=== PATIENT | male | born 1955 | race Caucasian/White ===

== ENCOUNTER → 2018-04-08 09:15 | Outpatient (CLI) | payer SELFPAY ==
[2018-04-08 11:08] LABS: Anion Gap 9 (5-15); BUN 12 mg/dL (7-18); BUN/Creat Ratio 14.4 RATIO (10-20); Chloride 108 mmol/L (98-107); Cholesterol 154 mg/dL (200); Creatinine, Serum 0.83 mg/dL (0.70-1.30); EST Glomerular Filtration Rate 99 mL/min (>60); Est Glom Filt Rate - Afr Amer 120 mL/min (>60); Glucose 100 mg/dL (74-106); High Density Lipoprotein 34 mg/dL; PSA,Total - Annual Screen 0.71 ng/mL (0.00-4.00); Potassium 3.7 mmol/L (3.5-5.1); Sodium Level 145 mmol/L (136-145); Triglycerides 158 mg/dL; Very Low Density Lipoprotein 32 mg/dL (5-40)
--- OUTSIDE RECORDS SUMMARY | 2018-07-10 21:33 | XMS RPT_ITS ---
:1955 Author Organization OH[facility] Care Team Providers Name Role Phone Chris Cochran Attending Unavailable Chris Cochran Referring Unavailable Chris Cochran Primary Care Unavailable PROBLEMS PROBLEMS DATE TYPE CONDITION / CODE ATTENDING STATUS SOURCE 04/17/2018 Unknown I10 - Essential Chris Cochran Active [place] (primary) Formerly [facility] hypertension / Hospital I10(ICD-10) Repository PROCEDURES PROCEDURES No Procedure Records FoundRESULTS RESULTS BASIC METABOLIC Collected: 04/08/2018 Status: F Source: [place] PROFILE (BMP) 9:26 AM [facility] REPOSITORY TYPE CODE TESTS RESULT OUT OF RANGE REFERENCE UNITS LAB L501.0100 74-106 mg/dL Normal GLU 100 Result Comment: Fasting Glucose result from 100 to 125 mg/dL suggests IMPAIRED HOMEOSTASIS per A.D.A. criteria. Please note revised GLUCOSE reference range effective 2017. LAB L501.1000 7-18 mg/dL Normal BUN 12 LAB L501.1100 0.70-1.30 mg/dL Normal CREAT,SERUM 0.83 Result Comment: The validity of the calculated GFR AND GFRAA in patients over 70 years has not been determined. Clinical correlation is essential. LAB L501.1110 >60 mL/min Normal EST GFR 99 Result Comment: Non- GFR Calc LAB L501.1115 >60 mL/min Normal EST GFR - AA 120 Result Comment: GFR Calc LAB L501.1300 10-20 RATIO Normal BUN/CRE 14.4 LAB L501.2200 8.5-10.1 mg/dL CA Normal 9.0 LAB L501.5300 136-145 mmol/L NA Normal 145 LAB L501.5600 3.5-5.1 mmol/L K Normal 3.7 LAB L501.5900 98-107 mmol/L High CL 108 LAB L501.6100 21.0-32.0 mmol/L Normal CO2 28.0 LAB L501.6200 5-15 Normal GAP 9 Performed By: #### L500.2500, L500.4100, L501.9910 #### [facility] [address] [place], [place], [address] LIPID PROFILE Collected: 04/08/2018 Status: F Source: [place] 9:26 AM [facility] TYPE CODE TESTS RESULT OUT OF RANGE REFERENCE UNITS LAB L501.4900 200 mg/dL Normal CHOL 154 Result Comment: <200 mg/dL Desirable 200-240 mg/dL Borderline >240 mg/dL High Risk LAB L501.5000 mg/dL Normal TRIG 158 Result Comment: The drugs N-Acetylcysteine and Metamizole may falsely depress this assay. Serum Triglycerides Reference Interval Normal <150 mg/dL Borderline high 150 - 199 mg/dL High 200 - 499 mg/dL Very High > or = 500 mg/dL LAB L501.6400 mg/dL Low HDL 34 Result Comment: The drugs N-Acetylcysteine and Metamizole may falsely depress this assay. Reference Range HDL <40 mg/dL Low HDL Cholesterol HDL >or= 60 mg/dL High HDL Cholesterol LAB L501.6500 0-130 mg/dL Normal LDL 88 LAB L501.6600 5-40 mg/dL Normal VLDL 32 Performed By: #### L500.2500, L500.4100, L501.9910 #### [facility] [address] [place], [place], [id number] PSA,TOTAL - ANNUAL Collected: 04/08/2018 Status: F Source: [place] SCREEN 9:26 AM [facility] TYPE CODE TESTS RESULT OUT OF RANGE REFERENCE UNITS LAB L501.9910 0.00-4.00 ng/mL Normal PSA,TOT 0.71 SCREEN Result Comment: This test was performed using the TPSA assay method for the Lancope chemistry system. Values obtained with different assay methods cannot be used interchangably. When changing PSA assays in the course of monitoring a patient, additional sequential testing should be carried out to confirm baseline values. Performed By: #### L500.2500, L500.4100, L501.9910 #### [facility] [address] [place], [address] ALLERGIES ALLERGIES DATE TYPE / CODE NAME / CODE REACTION SEVERITY SOURCE 04/17/2018 Drug atorvastatin Pain in joints Unknown [facility] Allergy/4160 /[id number]( Hospital [address](SNOMED RXNORM) Repository CT) ENCOUNTERS ENCOUNTERS ADMIT/DISCHARGE ACCOUNT ADMITTING ENCOUNTER LOCATION SOURCE NUMBER CLASS 04/08/2018 [id number] Ambulatory [address] ing:MTLAB Repository PAYERS PAYERS ENCOUNTER GUARANTOR PAYER SUBSCRIBER SOURCE 04/08/2018 CORTNEY [facility] NOT GIVENUNK [place] [id number] FORCE Insurance:SELF PAY [facility] [address]Goo: ([phone]) Number: Effective Repository [phone] () Date:2018-04-08
== END ==
PROVIDERS: Family Provider Family Medicine; PCP Family Medicine; Referring Provider Family Medicine; Visit Provider Family Medicine
DX: I10 Essential (primary) hypertension (principal); E78.00 Pure hypercholesterolemia, unspecified; Z12.5 Encounter for screening for malignant neoplasm of prostate
CPT/HCPCS: 36415; 80048; 80061; 84153; G0103

== ENCOUNTER → 2019-06-23 17:03 | Outpatient (CLI) | payer SELFPAY ==
[2016-07-18 17:00] VITALS: BMI 24.3
[2019-06-23 18:39] LABS: ALB/GLOB Ratio 1.3 RATIO (0.9-2.4); AST(SGOT) 15 U/L (15-37); Alanine Aminotransfer ALT/SGPT 24 U/L (16-61); Albumin, Serum 4.3 g/dL (3.2-5.0); Alkaline Phosphatase 120 U/L (45-117); Anion Gap 9 (5-15); BUN 17 mg/dL (7-18); BUN/Creat Ratio 18.6 RATIO (10-20); CPK Total, Creatine Kinase 110 U/L (39-308); Calcium,Total 9.1 mg/dL (8.5-10.1); Chloride 107 mmol/L (98-107); Creatinine, Serum 0.91 mg/dL (0.70-1.30); EST Glomerular Filtration Rate 89 mL/min (>60); Est Glom Filt Rate - Afr Amer 108 mL/min (>60); Ferritin 125 ng/mL (26-388); Globulin 3.2 g/dL (2.2-4.2); Glucose 110 mg/dL (74-106); Magnesium 2.3 mg/dL (1.6-2.6); Potassium 3.2 mmol/L (3.5-5.1); Protein, Total 7.5 g/dL (6.4-8.2); Sodium Level 141 mmol/L (136-145)
== END ==
PROVIDERS: PCP Family Medicine; Referring Provider Family Medicine; Visit Provider Family Medicine
DX: R25.2 Cramp and spasm (principal)
CPT/HCPCS: 36415; 80053; 82550; 82728; 83735

== ENCOUNTER → 2019-07-21 09:20 | Outpatient (CLI) | payer SELFPAY ==
[2016-07-18 17:00] VITALS: BMI 24.3
[2019-07-21 12:19] LABS: ALB/GLOB Ratio 1.4 RATIO (0.9-2.4); AST(SGOT) 18 U/L (15-37); Alanine Aminotransfer ALT/SGPT 26 U/L (16-61); Albumin, Serum 4.3 g/dL (3.2-5.0); Alkaline Phosphatase 117 U/L (45-117); Anion Gap 9 (5-15); BUN 14 mg/dL (7-18); BUN/Creat Ratio 14.3 RATIO (10-20); Calcium,Total 9.3 mg/dL (8.5-10.1); Chloride 104 mmol/L (98-107); Creatinine, Serum 0.98 mg/dL (0.70-1.30); EST Glomerular Filtration Rate 82 mL/min (>60); Est Glom Filt Rate - Afr Amer 99 mL/min (>60); Globulin 3.1 g/dL (2.2-4.2); Glucose 112 mg/dL (74-106); Potassium 3.5 mmol/L (3.5-5.1); Protein, Total 7.4 g/dL (6.4-8.2); Sodium Level 140 mmol/L (136-145)
== END ==
PROVIDERS: PCP Family Medicine; Referring Provider Family Medicine; Visit Provider Family Medicine
DX: E87.6 Hypokalemia (principal)
CPT/HCPCS: 36415; 80053

== ENCOUNTER → 2019-10-20 09:04 | Outpatient (CLI) | payer SELFPAY ==
[2016-07-18 17:00] VITALS: BMI 24.3
[2019-10-20 10:17] LABS: ALB/GLOB Ratio 1.2 RATIO (0.9-2.4); AST(SGOT) 12 U/L (15-37); Alanine Aminotransfer ALT/SGPT 16 U/L (16-61); Albumin, Serum 3.8 g/dL (3.2-5.0); Alkaline Phosphatase 96 U/L (45-117); Anion Gap 4 (5-15); BUN 13 mg/dL (7-18); BUN/Creat Ratio 14.4 RATIO (10-20); Calcium,Total 9.5 mg/dL (8.5-10.1); Chloride 109 mmol/L (98-107); EST Glomerular Filtration Rate 90 mL/min (>60); Est Glom Filt Rate - Afr Amer 109 mL/min (>60); Globulin 3.1 g/dL (2.2-4.2); Glucose 114 mg/dL (74-106); Potassium 3.5 mmol/L (3.5-5.1); Protein, Total 6.9 g/dL (6.4-8.2); Sodium Level 141 mmol/L (136-145)
== END ==
PROVIDERS: PCP Family Medicine; Referring Provider Family Medicine; Visit Provider Family Medicine
DX: I10 Essential (primary) hypertension (principal)
CPT/HCPCS: 36415; 80053

== ENCOUNTER → 2020-05-27 09:10 | Outpatient (CLI) | payer SELFPAY ==
[2016-07-18 17:00] VITALS: BMI 24.3
[2020-05-27 11:02] LABS: ALB/GLOB Ratio 1.3 RATIO (0.9-2.4); AST(SGOT) 12 U/L (15-37); Alanine Aminotransfer ALT/SGPT 18 U/L (16-61); Albumin, Serum 3.8 g/dL (3.2-5.0); Alkaline Phosphatase 98 U/L (45-117); Anion Gap 4 (5-15); BUN 15 mg/dL (7-18); BUN/Creat Ratio 16.3 RATIO (10-20); Chloride 109 mmol/L (98-107); Cholesterol 150 mg/dL (200); Creatinine, Serum 0.92 mg/dL (0.70-1.30); EST Glomerular Filtration Rate 88 mL/min (>60); Est Glom Filt Rate - Afr Amer 106 mL/min (>60); Glucose 98 mg/dL (74-106); High Density Lipoprotein 33 mg/dL; PSA,Total - Annual Screen 0.76 ng/mL (0.00-4.00); Potassium 3.6 mmol/L (3.5-5.1); Protein, Total 6.8 g/dL (6.4-8.2); Sodium Level 141 mmol/L (136-145); Triglycerides 204 mg/dL; Very Low Density Lipoprotein 41 mg/dL (5-40)
== END ==
PROVIDERS: PCP Family Medicine; Referring Provider Family Medicine; Visit Provider Family Medicine
DX: I10 Essential (primary) hypertension (principal); Z12.5 Encounter for screening for malignant neoplasm of prostate
CPT/HCPCS: 36415; 80053; 80061; 84153; G0103

== ENCOUNTER 2020-07-09 15:48 | Outpatient (RCR) | payer MEDICARE, SELFPAY ==
[2016-07-18 17:00] VITALS: BMI 24.3
[2020-07-09] MEDS: COVID-19 VACC, MRNA(PFIZER)/PF 30 MCG/0.3 ML SYRINGE IM (13:48)
[2020-07-30] MEDS: COVID-19 VACC, MRNA(PFIZER)/PF 30 MCG/0.3 ML SYRINGE IM (13:32)
== END 2020-07-09 23:59 ==
LOC: IMMUN 15:48
PROVIDERS: PCP Family Medicine; Referring Provider Family Medicine; Visit Provider Family Medicine
DX: Z23 Encounter for immunization (principal)
CPT/HCPCS: 0001A; 0002A; 91300

== ENCOUNTER 2021-07-26 09:30 | Outpatient (CLI) | payer MEDICARE, SELFPAY ==
[2021-07-26 10:55] LABS: ALB/GLOB Ratio 1.5 RATIO (0.9-2.4); AST(SGOT) 16 U/L (15-37); Alanine Aminotransfer ALT/SGPT 24 U/L (16-61); Albumin, Serum 3.8 g/dL (3.2-5.0); Alkaline Phosphatase 95 U/L (45-117); Anion Gap 6 (5-15); BUN 14 mg/dL (7-18); BUN/Creat Ratio 15.3 RATIO (10-20); Calcium,Total 8.8 mg/dL (8.5-10.1); Chloride 105 mmol/L (98-107); Cholesterol 168 mg/dL (200); Creatinine, Serum 0.91 mg/dL (0.70-1.30); EST Glomerular Filtration Rate 88 mL/min (>60); Est Glom Filt Rate - Afr Amer 107 mL/min (>60); Globulin 2.6 g/dL (2.2-4.2); Glucose 103 mg/dL (74-106); High Density Lipoprotein 33 mg/dL; Potassium 3.7 mmol/L (3.5-5.1); Protein, Total 6.4 g/dL (6.4-8.2); Sodium Level 140 mmol/L (136-145); Triglycerides 302 mg/dL; Very Low Density Lipoprotein 60 mg/dL (5-40)
== END 2021-07-26 23:59 | disposition home or self-care (01) ==
LOC: MFPLAB 09:32
PROVIDERS: PCP Nurse Practitioner Family; Referring Provider Nurse Practitioner Family; Visit Provider Nurse Practitioner Family
DX: E78.00 Pure hypercholesterolemia, unspecified (principal); I10 Essential (primary) hypertension
CPT/HCPCS: 36415; 80053; 80061

== ENCOUNTER → 2022-01-16 | Outpatient (CLI) | payer MEDICARE, SELFPAY ==
[2022-01-16 10:29] LABS: ALB/GLOB Ratio 1.2 RATIO (0.9-2.4); AST(SGOT) 12 U/L (15-37); Alanine Aminotransfer ALT/SGPT 17 U/L (16-61); Albumin, Serum 3.5 g/dL (3.2-5.0); Alkaline Phosphatase 91 U/L (45-117); Anion Gap 7 (5-15); BUN 15 mg/dL (7-18); BUN/Creat Ratio 17.6 RATIO (10-20); Calcium,Total 9.1 mg/dL (8.5-10.1); Chloride 108 mmol/L (98-107); Cholesterol 118 mg/dL (200); Creatinine, Serum 0.85 mg/dL (0.70-1.30); EST Glomerular Filtration Rate 96 mL/min (>60); Est Glom Filt Rate - Afr Amer 116 mL/min (>60); Glucose 99 mg/dL (74-106); High Density Lipoprotein 35 mg/dL; Potassium 3.5 mmol/L (3.5-5.1); Protein, Total 6.5 g/dL (6.4-8.2); Sodium Level 143 mmol/L (136-145); Triglycerides 163 mg/dL; Very Low Density Lipoprotein 33 mg/dL (5-40)
== END | disposition home or self-care (01) ==
LOC: MFPLAB 09:33
PROVIDERS: PCP Family Medicine; Referring Provider Family Medicine; Visit Provider Family Medicine
DX: E78.00 Pure hypercholesterolemia, unspecified (principal)
CPT/HCPCS: 36415; 80053; 80061

== ENCOUNTER → 2022-07-03 | Outpatient (CLI) | payer MEDICARE, SELFPAY ==
[2022-07-03 12:36] LABS: Hemoglobin A1c 5.6 % (3.8-5.6)
[2022-07-03 12:42] LABS: Anion Gap 9 (5-15); BUN 17 mg/dL (7-18); BUN/Creat Ratio 17.5 RATIO (10-20); Calcium,Total 9.6 mg/dL (8.5-10.1); Chloride 107 mmol/L (98-107); Creatinine, Serum 0.97 mg/dL (0.70-1.30); EST Glomerular Filtration Rate 82 mL/min (>60); Est Glom Filt Rate - Afr Amer 100 mL/min (>60); Glucose 122 mg/dL (74-106); Potassium 3.4 mmol/L (3.5-5.1); Sodium Level 140 mmol/L (136-145)
== END | disposition home or self-care (01) ==
LOC: MFPLAB 09:50
PROVIDERS: PCP Family Medicine; Visit Provider Family Medicine
DX: R73.9 Hyperglycemia, unspecified (principal)
CPT/HCPCS: 36415; 80048; 83036

== ENCOUNTER 2023-03-06 12:23 | Observation (INO) | payer MEDICARE, SELFPAY ==
--- NOTE | 2023-03-06 | MRI_ITS ---
STUDY: MRI BRAIN WITHOUT CONTRAST REASON FOR EXAM: Male, 67 years old. CVA, memory loss x3-4 hrs, prior TIA hx TECHNIQUE: Standardized multiplanar fat and water weighted pulse sequences were obtained. COMPARISON: CT 03/06/2023 FINDINGS: There is mild cerebral atrophy with widening of the extra-axial spaces and ventricular dilatation. Normal white matter tracts of the supratentorial brain. There is no evidence for recent intracranial ischemia or other cause of cytotoxic edema on diffusion weighted imaging (DWI). Normal T2* images of the brain without demonstrated susceptibility artifact. There is no demonstrated hemosiderin stain. Normal bilateral basal ganglia. Normal thalami. There is no extra-axial fluid accumulation. Normal flow voids within the major intracranial circulation suggesting patency by spin echo criteria. Normal sella turcica, pituitary gland, infundibular stalk, optic chiasm and hypothalamus. Normal tectal plate and pineal gland. Normal midbrain, glenna and medulla. Normal cerebellum. Normal basal cisterns. Normal bilateral temporal bones. Normal bilateral internal auditory canals. No demonstrated orbital abnormality, within the constraints of a routine brain study. Normal visualized paranasal sinuses. Normal calvarium and skull base. Normal visualized soft tissue structures. Normal visualized upper cervical spine. MRI/Brain without Contrast IMPRESSION: Normal unenhanced MRI of the brain. Electronically Signed: Georges Bullock MD at 20:08 EST ,
[2023-03-06 12:24] VITALS: BP 174/70; PULSE 57; RESP 14; TEMP 36.6; O2SAT 100; BMI 28.0
--- NOTE | 2023-03-06 12:38 | CT_ITS ---
STUDY: CTA HEAD AND NECK WITH CONTRAST REASON FOR EXAM: Male, 67 years old. Confusion RADIATION DOSAGE (If Supplied By Facility): CTDIvol = ( 26.19 ) mGy, DLP = ( 1569.10 ) mGycm TECHNIQUE: CT angiography was performed with a multi-detector CT scanner. Data acquisition was obtained from the skull base through the vertex following intravenous administration of IV 100mL Isovue-370. MIP images were reconstructed from the axial data set. Post-processing of the angiographic images was performed, with multiplanar reformation and 3D reconstruction. Individualized dose optimization techniques were used for this CT. COMPARISON: No relevant priors. FINDINGS: Normal bilateral petrous carotid arteries. There is calcified plaque formation of the right cavernous carotid artery, without a cross-sectional luminal stenosis. There is calcified plaque formation of the left cavernous carotid artery, without a cross-sectional luminal stenosis. Normal right A1 segments of the anterior cerebral artery. Normal left A1 segments of the anterior cerebral artery. Normal intact anterior communicating artery (ACOM). Normal bilateral A2 segments of the anterior cerebral arteries. Normal right M1 and M2 segments of the middle cerebral arteries, with a normal M1 bifurcation. Normal left M1 and M2 segments of the middle cerebral arteries, with a normal M1 bifurcation. Normal right posterior communicating artery (PCOM). Normal left posterior communicating artery (PCOM). Normal bilateral vertebral arteries. Normal basilar artery with a normal basilar bifurcation. The visualized bilateral superior cerebellar (SCA) arteries are normal. Normal bilateral P1, P2 and visualized P3 segments of the posterior cerebral arteries. There is no demonstrated aneurysm of the saxman of Tam. Mild degree of a cerebral atrophy. AORTIC ARCH: There is atherosclerotic calcific plaque formation of the aortic arch and great vessels arising from the aortic arch, without a hemodynamically significant stenosis. There is a normal origin of the brachiocephalic, left common carotid, and left subclavian arteries. Atherosclerotic calcific plaques at the origin of the left subclavian artery and right brachiocephalic artery. RIGHT CAROTID ARTERIES: Normal right common carotid artery (CCA). Normal right common carotid bulb. There is mild atherosclerotic plaque formation of the origin of the right internal carotid artery with less than 50% cross sectional diameter stenosis. Normal visualized cervical portion of the right internal carotid artery. Normal origin of the right external carotid artery (ECA). LEFT CAROTID ARTERIES: Normal left common carotid artery (CCA). Normal left common carotid bulb. There is mild atherosclerotic plaque formation of the origin of the left internal carotid artery with less than 50% cross sectional diameter stenosis. Normal visualized cervical portion of the left internal carotid artery. Normal origin of the left external carotid artery (ECA). VERTEBRAL ARTERIES: Normal bilateral vertebral arteries. CT/CTA Head AND Neck W/ Contrast IMPRESSION: Atherosclerotic calcific plaque at the origin of the right and left internal carotid artery without significant stenosis. Mild cerebral atrophy. Electronically Signed: Rashaun Blount MD at 14:22 EST ,
--- NOTE | 2023-03-06 12:38 | EKG12_ITS ---
Test Reason : CONFUSED Blood Pressure : / mmHG Vent. Rate : 053 BPM Atrial Rate : 053 BPM P-R Int : 144 ms QRS Dur : 094 ms QT Int : 424 ms P-R-T Axes : 070 -05 061 degrees QTc Int : 397 ms Sinus bradycardia Otherwise normal ECG Confirmed by SIOBHAN HOLDER, BERYL ([id number]), publications editor ARIELA HART ([id number]) on 03/14/2023 10:34:21 AM Referred By: Confirmed By:BERYL MCCANN MD
--- NOTE | 2023-03-06 12:41 | EX.ED.DYSGE1 ---
HPI History of Present Illness Chief Complaint: Confusion Informant: patient and spouse/S.O. Narrative Narrative: Patient presents with confusion that started about 1 and half to 2 hours ago. This patient does have high blood pressure and cholesterol. He takes a medicine for blood pressure which I suspect is metoprolol based on his heart rate. He is on simvastatin and also evidently some potassium supplementation. These have been taken and no changes or new medicines. Evidently the patient woke up today. He took family member to school and came back and evidently had no troubles with this. But then about an hour and a half or 2 hours ago he seemed to be confused. He had gotten a message on his machine that was the wrong number. He could not seem to figure this out although his did very quickly. He has been asking similar questions over and over. No falling. No facial droop or speech changes. He realizes he is confused. He had an episode similar to this about 6 years ago. But it sounds like it did not last quite as long and it involved actually some arm tingling also. I did review some of the reports from that and even after he was admitted and an MRI was done on the no indication of stroke. He has never had a seizure. No drug or alcohol abuse. He does not feel ill at all but he is not thinking clearly as per his normal. PFSH PFSH Home Medications Losartan/Hydrochlorothiazide [Hyzaar 50-12.5 Tablet] 1 tab PO DAILY 07/17/16 [History Last Taken 07/16/16] amlodipine 5 mg tablet 5 mg PO DAILY 03/06/23 [History Last Taken Unknown] aspirin 81 mg tablet,delayed release (Adult Aspirin Regimen) 81 mg PO DAILY 03/06/23 [History Last Taken Unknown] potassium chloride 10 mEq tablet,extended release 10 meq PO DAILY 03/06/23 [History Last Taken Unknown] sertraline 25 mg tablet 25 mg PO DAILY 03/06/23 [History Last Taken Unknown] simvastatin 20 mg tablet 20 mg PO DAILY 03/06/23 [History Last Taken Unknown] Allergy/AdvReac Type Severity Reaction Status Date / Time No Known Allergies Allergy Verified 07/09/20 13:48 Social History (System 04/17/18 @ 12:35 by Sallie Cochran) Smoking Status: Current every day smoker tobacco type: cigars ROS ROS ED ROS Narrative A complete review of systems was performed and is negative except as documented in the history of present illness. Some specific details below. Constitutional: No recent fevers or chills. No rigors. Patient has not generally felt ill. He does not feel ill now. EYE: No discharge, visual complaints, or pain. No visual field cut ENT: No difficulty swallowing. CV: No chest pain, pressure or aching. No palpitations or irregular beats. Patient has not been presyncopal or syncopal. Respiratory: No trouble breathing. No cough. No wheezing. No sputum production. No pain with breathing. GI: No abdominal pain. No nausea vomiting diarrhea. No blood in stool. : No frequency dysuria or hematuria. Musculoskeletal: No recent trauma. No pains. No swelling. Skin: No rash. Nondiaphoretic. Neuro: No focal weakness or numbness. No difficulty with speaking. No difficulty understanding speech. No visual loss. Please see history of present illness also. Patient did tell his that he felt dizzy at home. But he does not recall that and he does not feel dizzy at this time. I cannot define the symptom better as he does not recall it. But he did not fall. Endocrine: No polyuria or polydipsia. EXAM Physical Exam Narrative Exam Narrative: General: Patient is awake alert nontoxic sitting comfortably in the bed. Pleasant and cooperative. HEENT shows no asymmetry. No sign of trauma. Mucous membranes are minimally dry. Eyes: Normal range of motion. No visual field cut on direct confrontation. Neck is supple. I do not hear any carotid bruits. Heart is regular with a rate of about 60. I hear no murmur. It does not sound like he is in atrial fibrillation. Lungs are clear and there is no hypoxia. He is under percent on room air. Abdomen is soft nontender. Extremities show no edema cords swelling or tenderness. Neurologic: Patient still has a sense of humor. He is awake alert and appropriate. He knows where he is his name but he had trouble with the year. He did know the president [facility]. There is no focal weakness or numbness. No discoordination. He has an NIH of 1 for failure to get the month correct. He was able to get his date of month day and year correct. Const Vital Signs: 03/06/23 12:24 Temperature 97.9 F Temperature Source Temporal Pulse Rate 57 L Respiratory Rate 14 Blood Pressure 174/70 H Blood Pressure Mean 104 Pulse Ox 100 Oxygen Delivery Method Room Air MDM MDM MDM Narrative Medical decision making narrative: Patient has acute confusion without any lateralizing deficit. He had this before and had negative work-up for stroke but that was 6 years ago. He does have some risk factors with cholesterol and blood pressure. He is evidently had family members who have had strokes in their 60s. He has an NIH of 1 now. I do not think this justifies tPA at this time but TIA and stroke is certainly a possibility. We will also look up metabolic sources. Although I do not think he has been drinking I will do tox and alcohol. My independent interpretation of the patient's CT of the head shows no acute process and final reading of the CTA is negative for any significant abnormality. There is calcific plaque but no stenosis. Patient CBC shows patient metabolic panel shows mild white count which is nonspecific. He has had this in the past. No complaints consistent with infection. Electrolytes show mildly low potassium at 3.1 which is replaced. He is on hydrochlorothiazide and takes 10 mill equivalents a day of potassium and has a history of hypokalemia. But I still do not think his symptoms are justified as being caused by this alone. Mild elevation of glucose at 138. Patient's liver function test shows no marked abnormalities. Patient's ammonia is normal. Patient's troponin is normal at 18. Patient's alcohol is negative. Patient's urine toxicology screen is positive for cannabinoids. Lab Data Attestation: I reviewed the patient's lab results. Labs: Laboratory Results - last 24 hr 03/06/23 03/06/23 12:55 13:35 WBC 14.7 H RBC 4.70 Hgb 14.4 Hct 42.1 MCV 89.6 MCH 30.6 MCHC 34.2 RDW Std Deviation 42.4 RDW Coeff of Abrahan 13.0 Plt Count 256 MPV 10.4 Immature Gran % (Auto) 0.300 Neut % (Auto) 77.8 H Lymph % (Auto) 16.0 L [place] % (Auto) 5.2 Eos % (Auto) 0.1 Baso % (Auto) 0.6 Absolute Neuts (auto) 11.5 H Absolute Lymphs (auto) 2.36 Nucleated RBC % 0 Sodium 141 Potassium 3.1 L Chloride 108 H Carbon Dioxide 25.0 Anion Gap 8 BUN 16 Creatinine 0.94 Estim Creat Clear Calc 68.82 Est GFR (MDRD) Af Amer 103 Est GFR (MDRD) Non-Af 85 BUN/Creatinine Ratio 17.0 Glucose 138 H Calcium 9.1 Total Bilirubin 0.70 AST 14 L ALT 26 Alkaline Phosphatase 115 Ammonia 15.0 Troponin I High Sens 18 Total Protein 6.9 Albumin 4.1 Globulin 2.8 Albumin/Globulin Ratio 1.5 Urine Opiates Screen NEGATIVE Urine Methadone Screen NEGATIVE Ur Barbiturates Screen NEGATIVE Ur Phencyclidine Scrn NEGATIVE Ur Amphetamines Screen NEGATIVE MDMA (Ecstasy) Screen NEGATIVE U Benzodiazepines Scrn NEGATIVE Urine Cocaine Screen NEGATIVE U Cannabinoids Screen POSITIVE H Ur Drug Screen Comment Ethyl Alcohol < 3.0 Radiography Diagnostic Testing: Clinical Impression(s) from Imaging Studies Head/Neck CTA 03/06/23 12:38 IMPRESSION: Atherosclerotic calcific plaque at the origin of the right and left internal carotid artery without significant stenosis. Mild cerebral atrophy. Electronically Signed: Rashaun Blount MD at 14:22 EST , Chest X-Ray 03/06/23 14:03 IMPRESSION: Hyperinflation. COPD. Electronically Signed: Rashaun Blount MD at 14:30 EST , EKG Initial EKG: Comments: My independent interpretation of the patient's EKG shows a normal sinus rhythm but bradycardic rate at 53. No ectopy. No sign of A-fib. No acute ST elevation or depression. Mild nonspecific changes. MT interval, QRS duration and QTc are normal. Discharge Plan Triage Chief Complaint: Confusion ED Provider: Andrew Jimenes Dx/Rx/DC Orders Clinical Impression: Amnesia, global, transient, Elevated blood sugar, Acute hypokalemia Prescriptions: No Action Losartan/Hydrochlorothiazide [Hyzaar 50-12.5 Tablet] 1 TAB tablet 1 tab PO DAILY Patient Comments: blood pressure amlodipine 5 mg tablet 5 mg PO DAILY Patient Comments: TAKE 1 TABLET BY MOUTH DAILY potassium chloride 10 mEq tablet extended release 10 meq PO DAILY Patient Comments: Take 1 tablet by mouth daily sertraline 25 mg tablet 25 mg PO DAILY Patient Comments: TAKE 1 TABLET BY MOUTH EVERY DAY simvastatin 20 mg tablet 20 mg PO DAILY Patient Comments: Take 1 tablet by mouth daily aspirin [Adult Aspirin Regimen] 81 mg tablet,delayed release (DR/EC) 81 mg PO DAILY Primary Care Provider: Care Physician,No Primary Referrals: Brown Juarez MD [Med Staff - Active Staff] - Disposition Disposition: Acute Care Hospital [facility]
[2023-03-06 13:04] LABS: Absolute Lymphocyte Count 2.36 X10^3/uL (0.83-4.51); Absolute Neutrophil Count 11.5 X10^3/uL (2.0-7.7); Basophil# 0.09 X10^3/uL; Basophil% 0.6 % (0-1); Eosinophil# 0.01 X10^3/uL; Eosinophils% 0.1 % (0-5); Hematocrit 42.1 % (40-54); Hemoglobin 14.4 g/dL (13.0-16.5); Lymphocyte # 2.36 X10^3/ul (0.83-4.51); Mean Corp Hgb Conc 34.2 g/dL (32-36); Mean Corpuscular Hgb 30.6 pg (27.0-32.0); Mean Corpuscular Volume 89.6 fL (80-94); Mean Platelet Vol. 10.4 fl (6.2-12.0); Monocyte# 0.76 X10^3/uL; Monocyte% 5.2 % (0-10); NRBC Flagged by Analyzer 0 % (0-5); Neutrophil # 11.48 X10^3/uL (2.7-7.7); Neutrophil % 77.8 % (47-70); Platelet Count 256 K/mm3 (150-450); RBC Distribution Width SD 42.4 fl (35.1-43.9); White Blood Count 14.7 K/mm3 (4.4-11.0)
[2023-03-06] MEDS: 0.9% Normal Saline (1000mL) 1,000 ML 1000 ML IV (13:09)
[2023-03-06 13:20] LABS: ALB/GLOB Ratio 1.5 RATIO (0.9-2.4); AST(SGOT) 14 U/L (15-37); Alanine Aminotransfer ALT/SGPT 26 U/L (16-61); Albumin, Serum 4.1 g/dL (3.2-5.0); Alkaline Phosphatase 115 U/L (45-117); Anion Gap 8 (5-15); BUN 16 mg/dL (7-18); Calcium,Total 9.1 mg/dL (8.5-10.1); Chloride 108 mmol/L (98-107); Creatinine, Serum 0.94 mg/dL (0.70-1.30); EST Glomerular Filtration Rate 85 mL/min (>60); Est Glom Filt Rate - Afr Amer 103 mL/min (>60); Estimated Creatinine Clearance 68.82 ml/min; Globulin 2.8 g/dL (2.2-4.2); Glucose 138 mg/dL (74-106); Potassium 3.1 mmol/L (3.5-5.1); Protein, Total 6.9 g/dL (6.4-8.2); Sodium Level 141 mmol/L (136-145); Troponin-I HS 18 pg/mL (3.0-78.0)
[2023-03-06 13:38] LABS: Alcohol, Blood (Medical)-Serum < 3.0 mg/dL
[2023-03-06 13:57] LABS: Amphetamine Urine VISTA NEGATIVE (<1000 ng/mL); Barbiturate Urine VISTA NEGATIVE (< 200 ng/mL); Benzodiazepine Urine VISTA NEGATIVE (< 200 ng/mL); Cocaine Urine VISTA NEGATIVE (< 300 ng/mL); Ecstacy Urine VISTA NEGATIVE (< 500 ng/mL); Methadone Urine VISTA NEGATIVE (< 300 ng/mL); PCP Urine VISTA NEGATIVE (< 25 ng/mL); THC Urine VISTA POSITIVE (< 50 ng/mL); Vista UDS pH Range 7
--- NOTE | 2023-03-06 14:03 | RAD_ITS ---
STUDY: X-RAY CHEST REASON FOR EXAM: Male, 67 years old. Confusion, ? Pneumonia TECHNIQUE: Single AP portable view of the chest. COMPARISON: None. FINDINGS: EKG electrodes are seen. There is hyperinflation of the lungs consistent with chronic obstructive lung disease (COPD). There is no demonstrated pleural abnormality. Normal size heart. Normal mediastinum and garo. Normal visualized pulmonary arteries. Normal visualized aortic arch and descending thoracic aorta. Normal visualized thoracic spine. Normal visualized ribs, clavicles, and shoulders. There is no demonstrated abnormality of the visualized soft tissue structures of the upper abdomen. RAD/Chest 1 View (Portable) IMPRESSION: Hyperinflation. COPD. Electronically Signed: Rashaun Blount MD at 14:30 EST ,
[2023-03-06] MEDS: Potassium Chloride Oral Tablet 20 MEQ 40 MEQ PO (14:39)
--- NOTE | 2023-03-06 14:46 | PCM.HP.STD ---
HPI - General General Date of Admission: 03/06/23 Date of Service: 03/06/23 Chief Complaint: Confusion. HPI Narrative The patient is a 67 y/o M w/ PMHx: Anxiety and Depression, HTN, HLD, Former cigarette tobacco use-->cigar daily use who presents to the [facility] ED on 03/06/23 with history of awaking on day of presentation reportedly taking a family member to school and upon his return approximately an hour to 2 hours following this became very confused reportedly receiving a message on his voicemail that he was unable to understand with the realization that he felt confused with history of similar episode approximately 6 years prior which at that time did not last long at all however at that time he also had some upper extremity paresthesias with negative MRI and no evidence of any seizure at that time but given this recurrence prompted ED evaluation. In the ED initial NIH stroke score 1. Upon ED evaluation in addition to difficulty with orientation questions on examination did note a very mild flattening to the left nasolabial fold and did report that approximately 2 days prior patient did state that his face on that side felt mildly puffy and she did believe that potentially that was the cause of the appearance but now looking at it she says she feels as though this is not his normal. Work-up in the ED included T97.9, heart rate 57, BP 174/70, respiratory rate 14, 100% on room air, CBC with WBC 14.7, hemoglobin 14.4, platelet 256 with left shift, EKG with sinus bradycardia with no acute evidence of ischemia, CMP with potassium 3.1, chloride 108, glucose 138 otherwise hepatic profile unremarkable, ammonia 15, troponin 18, ethyl alcohol less than 3, chest x-ray with no acute cardiopulmonary findings with evidence of COPD/hyperinflation, CTA head neck Atherosclerotic calcific plaque at the origin of the right and left nternal carotid artery without significant stenosis, mild cerebral atrophy, UDS with + cannabis. In the ED patient administered FS ASA and potassium 40 mill equivalent p.o. x1. PFSH Medical History Anxiety and depression Chronic hypokalemia Hyperlipidemia Hypertension Tobacco use Home Medications Losartan/Hydrochlorothiazide [Hyzaar 50-12.5 Tablet] 1 tab PO DAILY 07/17/16 [History Last Taken 07/16/16] amlodipine 5 mg tablet 5 mg PO DAILY 03/06/23 [History Last Taken Unknown] potassium chloride 10 mEq tablet,extended release 10 meq PO DAILY 03/06/23 [History Last Taken Unknown] sertraline 25 mg tablet 25 mg PO DAILY 03/06/23 [History Last Taken Unknown] simvastatin 20 mg tablet 20 mg PO DAILY 03/06/23 [History Last Taken Unknown] Allergy/AdvReac Type Severity Reaction Status Date / Time No Known Allergies Allergy Verified 07/09/20 13:48 Family History (Updated 03/06/23 @ 15:[address] Chely Peralta MD) Mother CVA (cerebral vascular accident) Alcoholism Father CAD (coronary artery disease) Heart disease Hypertension Myocardial infarction Surgical History (Updated 03/06/23 @ 15:[address] Chely Peralta MD) History of dental surgery Social History (Updated 03/06/23 @ 16:[address] Chely Peralta MD) household members: spouse Smoking Status: Current every day smoker how long ago did patient quit smoking: Stopped cigarette tobacco ~ 3 yrs ago-->1 cigar daily. alcohol intake: current alcohol intake frequency: holidays/special occasions only substance use type: does not use ROS ROS Narrative Admission Review of Systems: CONSTITUTIONAL: No weight loss, fever, chills, + weakness or fatigue. HEENT: + Mild L facial flattening. Eyes: No visual loss, blurred vision, double vision or yellow sclerae. Ears, Nose, Throat: No hearing loss, sneezing, congestion, runny nose or sore throat. SKIN: No rash or itching, lesions, wounds. CARDIOVASCULAR: No chest pain, chest pressure or chest discomfort, palpitations, edema, orthopnea, syncopal events. RESPIRATORY: No shortness of breath, cough or sputum, wheezing, hemoptysis. GASTROINTESTINAL: No anorexia, nausea, vomiting or diarrhea, abdominal pain, melena, BRBPR. GENITOURINARY: No dysuria, frequency, urgency or retention. NEUROLOGICAL: + Mild L facial flattening, confusion. No headache, dizziness, syncope, paralysis, ataxia, numbness or tingling in the extremities, focal weakness, change in bowel or bladder control, seizure. MUSCULOSKELETAL: + muscle, back pain, joint pain or stiffness. HEMATOLOGIC: No anemia, bleeding or bruising. LYMPHATICS: No enlarged nodes. No history of splenectomy. PSYCHIATRIC: + history of depression or anxiety. ENDOCRINOLOGIC: No reports of sweating, cold or heat intolerance. No polyuria or polydipsia. ALLERGIES: No history of asthma, hives, eczema or rhinitis. Vital Signs Vital Signs Vital Signs: 03/06/23 12:24 Temperature 97.9 F Temperature Source Temporal Pulse Rate 57 L Respiratory Rate 14 Blood Pressure 174/70 H Blood Pressure Mean 104 Pulse Ox 100 Oxygen Delivery Method Room Air Weight Weight: 174 lb Body Mass Index (BMI) 28.0 Physical Exam Narrative Physical Examination: General: Awake, alert, oriented to self, place, president however he gives the wrong year in the wrong month, family does note that this is improved since his initial, remains cooperative, seated upright in the ED bed in no apparent distress. Skin: Normal color, normal turgor, no icterus, no cyanosis. HEENT: AT/NC, EOMI, PERRLA, MMM, no carotid bruits or JVD noted, mild flattening of the left nasolabial fold which family believes is new over the last 2 days. Lungs: CTA bilaterally, moderate effort, mild decrease BL bases, no rales, ronchi or wheezing. Heart: Regular rate and rhythm; no gallop, rub audible. Abdomen: Soft, NTTP, ND, mildly hyperactive BS, no HSM. Extremities: No cyanosis, clubbing, or edema. Neurological: Patient awake, alert, oriented as noted, cognitive function not currently baseline intact; pupils equally reactive to light and accommodation, cranial nerves grossly normal except evaluation notable for mild left nasolabial flattening, moving all 4 extremities, strength preserved, FTN and HTS appropriate, sensation intact, equivocal Babinski. Psychiatric: Affect appears fatigued otherwise normal, no acute evidence of depressive or anxiety feelings but does have underlying history. Results Lab / Micro Data 03/06/23 12:55 03/06/23 12:55 Labs: Laboratory Results - last 24 hr 03/06/23 12:55: WBC 14.7 H, RBC 4.70, Hgb 14.4, Hct 42.1, MCV 89.6, MCH 30.6, MCHC 34.2, RDW Std Deviation 42.4, RDW Coeff of Abrahan 13.0, Plt Count 256, MPV 10.4, Immature Gran % (Auto) 0.300, Neut % (Auto) 77.8 H, Lymph % (Auto) 16.0 L, [place] % (Auto) 5.2, Eos % (Auto) 0.1, Baso % (Auto) 0.6, Absolute Neuts (auto) 11.5 H, Absolute Lymphs (auto) 2.36, Nucleated RBC % 0, Sodium 141, Potassium 3.1 L, Chloride 108 H, Carbon Dioxide 25.0, Anion Gap 8, BUN 16, Creatinine 0.94, Estim Creat Clear Calc 68.82, Est GFR (MDRD) Af Amer 103, Est GFR (MDRD) Non-Af 85, BUN/Creatinine Ratio 17.0, Glucose 138 H, Calcium 9.1, Total Bilirubin 0.70, AST 14 L, ALT 26, Alkaline Phosphatase 115, Ammonia 15.0, Troponin I High Sens 18, Total Protein 6.9, Albumin 4.1, Globulin 2.8, Albumin/Globulin Ratio 1.5, Ethyl Alcohol < 3.0 03/06/23 13:35: Urine Opiates Screen NEGATIVE, Urine Methadone Screen NEGATIVE, Ur Barbiturates Screen NEGATIVE, Ur Phencyclidine Scrn NEGATIVE, Ur Amphetamines Screen NEGATIVE, MDMA (Ecstasy) Screen NEGATIVE, U Benzodiazepines Scrn NEGATIVE, Urine Cocaine Screen NEGATIVE, U Cannabinoids Screen POSITIVE H, Ur Drug Screen Comment Radiology Impression Head/Neck CTA 03/06/23 12:38 IMPRESSION: Atherosclerotic calcific plaque at the origin of the right and left internal carotid artery without significant stenosis. Mild cerebral atrophy. Electronically Signed: Rashaun Blount MD at 14:22 EST Reading Location ID and State: [facility] / [place] , Service support , Chest X-Ray 03/06/23 14:03 IMPRESSION: Hyperinflation. COPD. Electronically Signed: Rashaun Blount MD at 14:30 EST , Assessment & Plan Assessment/Plan (1) TIA (transient ischemic attack): QUALIFIERS: Transient cerebral ischemia type: unspecified Qualified Code(s): G45.9 - Transient cerebral ischemic attack, unspecified (2) Amnesia, global, transient: PLAN: Plan The patient is a 67 y/o M w/ PMHx: Anxiety and Depression, HTN, HLD, Former cigarette tobacco use-->cigar daily use who presents to the [facility] ED on 03/06/23 with history of awaking on day of presentation reportedly taking a family member to school and upon his return approximately an hour to 2 hours following this became very confused reportedly receiving a message on his voicemail that he was unable to understand with the realization that he felt confused with history of similar episode approximately 6 years prior which at that time did not last long at all however at that time he also had some upper extremity paresthesias with negative MRI and no evidence of any seizure at that time but given this recurrence prompted ED evaluation. #1. Transient global amnesia and mild L nasolabial flattening concerning for CVA: Will admit to PCU, will obtain MRI Brain, MRA Head and Neck, ECHO, PT/OT/Speech/Nutrition evaluation per protocol. Will allow permissive HTN, maintain on asa, continue home statin w/ AM FLP, fall precautions. Mag, TSH, FLP, HgbA1c requested. Maintain on fall and aspiration precautions. #2. Hypokalemia: Admission K+ 3.1, magnesium level requested, supplementation given, repeat level in AM. #3. Hyperglycemia, mild: Admission glucose 138, mildly elevated, human A1c requested per stroke protocol as noted above. #4. Hypertension: We will maintain permissive hypertension with as needed agents per stroke protocol. #5. Hyperlipidemia: Continue home statin regimen. AM FLP. #6. Anxiety and depression: We will continue patient home escitalopram regimen. #7. Former tobacco use: Encourage continued tobacco cessation. #8. DVT prophylaxis: Lovenox. Charges/Coding Visit Charges Inpatient E&M: 16459 Init Hosp L3
[2023-03-06] MEDS: Aspirin 325 MG Tablet PO (14:56)
[2023-03-06 16:00] VITALS: BP 150/69; PULSE 55; RESP 21
[2023-03-06 17:07] VITALS: BP 150/69; PULSE 48; RESP 16
--- NOTE | 2023-03-06 17:44 | ECHOD_ITS ---
Reason For Study: TIA/CVA Procedure This was a 2D Doppler, Color Flow transthoracic echocardiogram. Exam performed portable in patient room. Left Ventricle Normal left ventricle. The estimated ejection fraction is 55-60 %. Right Ventricle Normal right ventricle. Normal systolic function. Atria Normal left atrium. Normal right atrium. Mitral Valve The mitral valve is structurally normal. No prolapse or stenosis seen. Trivial mitral valve insufficiency. Tricuspid Valve Normal tricuspid valve. Trivial eccentric tricuspid valve insufficiency. Aortic Valve Normal aortic valve. Pulmonic Valve The pulmonic valve is not well visualized. Great Vessels Normal aortic root. Pericardium/Pleural No pericardial effusion. Medication Performed a rapid injection of agitated mix of 9 cc saline and 1cc air to assess for atrial septal defect. MMode/2D Measurements & Calculations LVIDd: 4.2 cm IVSd: 1.2 cm LAV(MOD-bp): 58.1 ml LVIDs: 2.8 cm LVPWd: 1.2 cm RVDd: 3.2 cm FS: 34.0 % LAV(MOD-bp) Indexed: 33.2 ml/m2 LAV(MOD-sp2): 64.1 ml LAV(MOD-sp4): 48.6 ml SV(MOD-sp4): 36.0 ml SV(sp4-el): 37.7 ml LVAd ap4: 25.2 cm2 LVLd ap4: 8.1 cm EDV(MOD-sp4): 66.6 ml EDV(sp4-el): 66.7 ml LVAs ap4: 14.8 cm2 LVLs ap4: 6.4 cm ESV(MOD-sp4): 30.6 ml ESV(sp4-el): 29.0 ml EF(MOD-sp4): 54.0 % EF(sp4-el): 56.5 % LA dimension(2D): 3.6 cm LA A4 area: 18.3 cm2 RA A4 area: 18.3 cm2 TAPSE: 3.7 cm Time Measurements MV dec time: 0.20 sec Doppler Measurements & Calculations MV E max pantera: 65.8 cm/sec Lat Peak E' Pantera: 17.3 cm/sec Med Peak E' Pantera: 12.1 cm/sec MV A max pantera: 62.1 cm/sec E/E' lat: 3.8 E/E' med: 5.5 MV E/A: 1.1 MV V2 max: 84.4 cm/sec MV dec slope: 348.9 cm/sec2 Ao V2 max: 132.2 cm/sec MV max P.9 mmHg Ao max P.0 mmHg MV V2 mean: 51.8 cm/sec Ao V2 mean: 77.3 cm/sec MV mean P.2 mmHg Ao mean P.8 mmHg MV V2 VTI: 34.9 cm Ao V2 VTI: 26.2 cm AV (velocity ratio): 1.0 LV V1 max: 126.0 cm/sec PA V2 max: 99.1 cm/sec TR max pantera: 334.6 cm/sec LV V1 max P.4 mmHg PA V2 mean: 70.2 cm/sec TR max P.8 mmHg LV V1 mean P.7 mmHg LV V1 mean: 76.4 cm/sec LV V1 VTI: 26.8 cm ECHO/Echo Complete Interpretation Summary The estimated ejection fraction is 55-60 %. Normal LV systolic function No significant change from prior echocardiogram Ordering Physician: Chely Peralta Referring Physician: SHERIN PCP Performed By: Lala Lowery RCS
[2023-03-06 17:45] VITALS: BMI 22.6
[2023-03-06 18:00] VITALS: BP 156/67; PULSE 55; RESP 18; TEMP 37.1; O2SAT 97
--- NOTE | 2023-03-06 18:50 | NURSING ---
Patient off unit to MRI
[2023-03-06 19:55] VITALS: O2SAT 97
[2023-03-06] MEDS: 0.9% Normal Saline (1000mL) 1,000 ML 100 ML IV (20:07)
[2023-03-06 22:00] VITALS: BP 128/75; PULSE 47; RESP 16; TEMP 36.8; O2SAT 98
[2023-03-07 01:39] VITALS: BMI 22.6
[2023-03-07 02:00] VITALS: BP 127/60; PULSE 49; RESP 16; TEMP 36.8; O2SAT 99
[2023-03-07 06:00] VITALS: BP 128/68; PULSE 49; RESP 16; TEMP 36.9; O2SAT 97; BMI 23.0
[2023-03-07 07:46] VITALS: O2SAT 97
[2023-03-07 08:14] LABS: Absolute Lymphocyte Count 2.35 X10^3/uL (0.83-4.51); Absolute Neutrophil Count 5.2 X10^3/uL (2.0-7.7); Basophil# 0.05 X10^3/uL; Basophil% 0.6 % (0-1); Hemoglobin 13.7 g/dL (13.0-16.5); Lymphocyte # 2.35 X10^3/ul (0.83-4.51); Lymphocyte % 28.9 % (19-41); Mean Corp Hgb Conc 33.4 g/dL (32-36); Mean Corpuscular Hgb 30.9 pg (27.0-32.0); Mean Corpuscular Volume 92.6 fL (80-94); Mean Platelet Vol. 10.3 fl (6.2-12.0); Monocyte# 0.53 X10^3/uL; Monocyte% 6.5 % (0-10); NRBC Flagged by Analyzer 0 % (0-5); Neutrophil # 5.19 X10^3/uL (2.7-7.7); Neutrophil % 63.8 % (47-70); Platelet Count 232 K/mm3 (150-450); RBC Distribution Width CV 13.4 % (11.6-14.6); RBC Distribution Width SD 45.7 fl (35.1-43.9); Red Blood Count 4.43 M/mm3 (4.6-6.2); White Blood Count 8.1 K/mm3 (4.4-11.0)
[2023-03-07 08:49] VITALS: BP 131/67; PULSE 50; RESP 12; TEMP 36.9; O2SAT 99
[2023-03-07 08:50] LABS: ALB/GLOB Ratio 1.2 RATIO (0.9-2.4); AST(SGOT) 12 U/L (15-37); Alanine Aminotransfer ALT/SGPT 20 U/L (16-61); Albumin, Serum 3.3 g/dL (3.2-5.0); Alkaline Phosphatase 99 U/L (45-117); Anion Gap 4 (5-15); BUN 16 mg/dL (7-18); BUN/Creat Ratio 19.8 RATIO (10-20); Calcium,Total 8.5 mg/dL (8.5-10.1); Chloride 114 mmol/L (98-107); Cholesterol 137 mg/dL (200); Creatinine, Serum 0.81 mg/dL (0.70-1.30); EST Glomerular Filtration Rate 101 mL/min (>60); Est Glom Filt Rate - Afr Amer 123 mL/min (>60); Estimated Creatinine Clearance 79.86 ml/min; Globulin 2.8 g/dL (2.2-4.2); Glucose 105 mg/dL (74-106); High Density Lipoprotein 34 mg/dL; Potassium 3.7 mmol/L (3.5-5.1); Protein, Total 6.1 g/dL (6.4-8.2); Sodium Level 143 mmol/L (136-145); Thyroid Stim Hormone (TSH) 2.11 uIU/mL (0.358-3.74); Triglycerides 79 mg/dL; Very Low Density Lipoprotein 16 mg/dL (5-40)
[2023-03-07 08:53] LABS: Hemoglobin A1c 5.4 % (3.8-5.6)
[2023-03-07] MEDS: Aspirin 81 MG TAB.CHEW PO (08:58)
[2023-03-07] MEDS: Enoxaparin 40 MG/0.4 ML Syringe SC (08:59)
[2023-03-07] MEDS: Sertraline 50 MG Tablet 25 MG PO (08:59)
[2023-03-07] MEDS: Potassium Chloride Oral Tablet 10 MEQ PO (08:59)
[2023-03-07] MEDS: Atorvastatin Calcium 10 MG Tablet PO (08:59)
--- NOTE | 2023-03-07 12:34 | DS.PCM_ITS ---
Providers Date of Admission: 03/06/23 Date of Discharge: 03/07/23 Primary Care Physician: No Primary Care Phys Reason For Visit: TGA Diagnosis Discharge Diagnosis (1) TIA (transient ischemic attack): Status: Acute Qualifiers: Transient cerebral ischemia type: unspecified Qualified Code(s): G45.9 - Transient cerebral ischemic attack, unspecified (2) Amnesia, global, transient: Status: Acute Code(s): G45.4 - Transient global amnesia Medications at Discharge Home Medications Losartan/Hydrochlorothiazide [Hyzaar 50-12.5 Tablet] 1 tab PO DAILY 07/17/16 amlodipine 5 mg tablet 5 mg PO DAILY 03/06/23 sertraline 25 mg tablet 25 mg PO DAILY 03/06/23 simvastatin 20 mg tablet 20 mg PO DAILY 03/06/23 aspirin 81 mg chewable tablet 81 mg PO BREAKFAST #60 tabs 03/07/23 potassium chloride 10 mEq tablet,extended release 20 meq (2 x 10 mEq) PO DAILY 30 days #60 tabs 03/07/23 Hospital Course Summary of Care Provided Minutes Spent on Discharge: 35 Hospital Course: Patient is a 67-year-old gentleman who was admitted with transient episodes of confusion as well as inability to recall. An assessment of transient global amnesia made admitted to monitored bed for further management 1. Transient global amnesia ? Patient symptoms did resolve underwent MRI which was negative for acute CVA. Patient was discharged on antiplatelet therapy as well as statin therapy 2. Hypokalemia ? Potassium was 3.1 on admission corrected per protocol 3. Hypertension ? Blood pressure controlled, home medications continued with dose adjustment as needed 4. Dyslipidemia ?Patient is on statin therapy, continued at home dose 5. Depression with anxiety ? Patient is on escitalopram continue 6. DVT prophylaxis ? SC Lovenox Physical Exam Narrative GENERAL: cooperative HEENT: Atraumatic; normocephalic EYES; Anicteric, Normal Conjunctiva NECK; supple, normal thyroid, RESPIRATORY: Diminished to auscultation CARDIOVASCULAR: Regular S1 S2, GI: soft, normoactive bowel sounds, : No Renal angle tenderness; EXTREMITIES: No edema, no clubbing, MUSCULOSKELETAL: no muscle wasting NEURO: Awake; no lateralizing signs. SKIN: No Rash PSYCH; Flat affect Weight / BMI Weight Weight: 64.8 kg Body Mass Index (BMI) 23.0 ABG / Lab / Microbiology Data 03/07/23 07:45 03/07/23 07:45 Laboratory: Laboratory Results - last 24 hr 03/06/23 12:55: WBC 14.7 H, RBC 4.70, Hgb 14.4, Hct 42.1, MCV 89.6, MCH 30.6, MCHC 34.2, RDW Std Deviation 42.4, RDW Coeff of Abrahan 13.0, Plt Count 256, MPV 10.4, Immature Gran % (Auto) 0.300, Neut % (Auto) 77.8 H, Lymph % (Auto) 16.0 L, [place] % (Auto) 5.2, Eos % (Auto) 0.1, Baso % (Auto) 0.6, Absolute Neuts (auto) 11.5 H, Absolute Lymphs (auto) 2.36, Nucleated RBC % 0, Sodium 141, Potassium 3.1 L, Chloride 108 H, Carbon Dioxide 25.0, Anion Gap 8, BUN 16, Creatinine 0.94, Estim Creat Clear Calc 68.82, Est GFR (MDRD) Af Amer 103, Est GFR (MDRD) Non-Af 85, BUN/Creatinine Ratio 17.0, Glucose 138 H, Calcium 9.1, Magnesium 2.0, Total Bilirubin 0.70, AST 14 L, ALT 26, Alkaline Phosphatase 115, Ammonia 15.0, Troponin I High Sens 18, Total Protein 6.9, Albumin 4.1, Globulin 2.8, Albumin/Globulin Ratio 1.5, Ethyl Alcohol < 3.0 03/06/23 13:35: Urine Opiates Screen NEGATIVE, Urine Methadone Screen NEGATIVE, Ur Barbiturates Screen NEGATIVE, Ur Phencyclidine Scrn NEGATIVE, Ur Amphetamines Screen NEGATIVE, MDMA (Ecstasy) Screen NEGATIVE, U Benzodiazepines Scrn NEGATIVE, Urine Cocaine Screen NEGATIVE, U Cannabinoids Screen POSITIVE H, Ur Drug Screen Comment 03/07/23 07:45: WBC 8.1, RBC 4.43 L, Hgb 13.7, Hct 41.0, MCV 92.6, MCH 30.9, MCHC 33.4, RDW Std Deviation 45.7 H, RDW Coeff of Abrahan 13.4, Plt Count 232, MPV 10.3, Immature Gran % (Auto) 0.200, Neut % (Auto) 63.8, Lymph % (Auto) 28.9, [place] % (Auto) 6.5, Eos % (Auto) 0.0, Baso % (Auto) 0.6, Absolute Neuts (auto) 5.2, Absolute Lymphs (auto) 2.35, Nucleated RBC % 0, Sodium 143, Potassium 3.7, Chloride 114 H, Carbon Dioxide 25.0, Anion Gap 4 L, BUN 16, Creatinine 0.81, Estim Creat Clear Calc 79.86, Est GFR (MDRD) Af Amer 123, Est GFR (MDRD) Non-Af 101, BUN/Creatinine Ratio 19.8, Glucose 105, Hemoglobin A1c 5.4, Calcium 8.5, Total Bilirubin 0.60, AST 12 L, ALT 20, Alkaline Phosphatase 99, Total Protein 6.1 L, Albumin 3.3, Globulin 2.8, Albumin/Globulin Ratio 1.2, Triglycerides 79, Cholesterol 137, LDL Cholesterol 87, VLDL Cholesterol 16, HDL Cholesterol 34 L, TSH 2.11 Radiography Diagnostic Testing: Radiology Impression Brain MRI 03/06/23 00:00 IMPRESSION: Normal unenhanced MRI of the brain. Electronically Signed: Georges Bullock MD at 20:08 EST , Head/Neck CTA 03/06/23 12:38 IMPRESSION: Atherosclerotic calcific plaque at the origin of the right and left internal carotid artery without significant stenosis. Mild cerebral atrophy. Electronically Signed: Rashaun Blount MD at 14:22 EST , Chest X-Ray 03/06/23 14:03 IMPRESSION: Hyperinflation. COPD. Electronically Signed: Rashaun Blount MD at 14:30 EST , D/C Instructions Discharge Diet: No restrictions Discharge Activity: Return to Normal Activity Call your doctor if you observe: Fever of 101 or Higher, Shortness of breath, Fainting spells and Chest pain Meaningful Use Info Meaningful Use Diagnoses (Choose all that apply): None applicable Discharge Plan Admission Admit Date/Time: 03/06/23 14:52 Attending Provider: Khari Tate Primary Care Provider: Care Physician,No Primary Consulting Providers: Chely Peralta Discharge Orders/Prescriptions Prescriptions: New aspirin 81 mg Tablet,Chewable 81 mg PO BREAKFAST Qty: 60 0RF Continued Losartan/Hydrochlorothiazide [Hyzaar 50-12.5 Tablet] 1 TAB tablet 1 tab PO DAILY Patient Comments: blood pressure amlodipine 5 mg tablet 5 mg PO DAILY Patient Comments: TAKE 1 TABLET BY MOUTH DAILY sertraline 25 mg tablet 25 mg PO DAILY Patient Comments: TAKE 1 TABLET BY MOUTH EVERY DAY simvastatin 20 mg tablet 20 mg PO DAILY Patient Comments: Take 1 tablet by mouth daily Changed potassium chloride 10 mEq tablet extended release 20 meq PO DAILY 30 Days Qty: 60 0RF Patient Comments: Take 1 tablet by mouth daily Referrals / Follow Up: Brown Juarez MD [Med Staff - Active Staff] - Within 2 Weeks Care Physician,No Primary [Primary Care Provider] - Disposition Disposition (needs filled in before D/C Order can be placed): Home, Self Care Charges/Coding Visit Charges Inpatient E&M: 77604 Disch Hosp >30min
--- NOTE | 2023-03-07 16:11 | CASEMGMT ---
Patient has order for discharge. RN CM in to discuss needs at discharge. No therapy recommended at discharge. Patient denies needs at discharge. Patient had no further questions or concerns.
[2023-03-07 17:23] VITALS: BP 154/65; PULSE 50; RESP 14; TEMP 36.5; O2SAT 95
== END 2023-03-07 12:40 | disposition home or self-care (01) ==
LOC: ED 14:51 → PCU 15:25
PROVIDERS: Admitting Provider Family Medicine; Emergency Provider Emergency Medicine; Visit Provider Internal Medicine
DX: G45.4 Transient global amnesia (principal); J44.9 Chronic obstructive pulmonary disease, unspecified; E87.6 Hypokalemia; E78.5 Hyperlipidemia, unspecified; R73.9 Hyperglycemia, unspecified; F17.290 Nicotine dependence, other tobacco product, uncomplicated; I10 Essential (primary) hypertension; R00.1 Bradycardia, unspecified; I65.22 Occlusion and stenosis of left carotid artery; F41.8 Other specified anxiety disorders; Z79.899 Other long term (current) drug therapy; Z79.82 Long term (current) use of aspirin
CPT/HCPCS: 70496; 70498; 70551; 71045; 80053; 80061; 80307; 82077; 82140; 83036; 83735; 84443; 84484; 85025; 93005; 93306; 94762; 96360; 96361; 96372; 97802; 99221; 99284; J7030; J7040; Q9967; A4216; G0378

== ENCOUNTER → 2023-03-19 | Outpatient (CLI) | payer MEDICARE, SELFPAY ==
[2023-03-19 18:07] LABS: Anion Gap 8 (5-15); BUN 15 mg/dL (7-18); BUN/Creat Ratio 17.5 RATIO (10-20); Calcium,Total 8.9 mg/dL (8.5-10.1); Chloride 108 mmol/L (98-107); Creatinine, Serum 0.86 mg/dL (0.70-1.30); EST Glomerular Filtration Rate 94 mL/min (>60); Est Glom Filt Rate - Afr Amer 114 mL/min (>60); Glucose 91 mg/dL (74-106); Potassium 3.7 mmol/L (3.5-5.1); Sodium Level 141 mmol/L (136-145)
[2023-03-21 12:08] LABS: Lead, Blood Adult 16+yrs 1.8 ug/dL (0.0-3.4)
== END | disposition home or self-care (01) ==
PROVIDERS: PCP Family Medicine; Visit Provider Family Medicine
DX: G45.9 Transient cerebral ischemic attack, unspecified (principal); E87.6 Hypokalemia
CPT/HCPCS: 36415; 80048; 83655

== ENCOUNTER → 2023-10-30 | Outpatient (CLI) | payer MEDICARE, SELFPAY ==
[2023-10-30 12:56] LABS: Anion Gap 5 (5-15); BUN 16 mg/dL (7-18); BUN/Creat Ratio 17.7 RATIO (10-20); Calcium,Total 9.2 mg/dL (8.5-10.1); Chloride 111 mmol/L (98-107); Cholesterol 136 mg/dL (200); EST Glomerular Filtration Rate 89 mL/min (>60); Est Glom Filt Rate - Afr Amer 108 mL/min (>60); Glucose 108 mg/dL (74-106); High Density Lipoprotein 36 mg/dL; PSA,Total- Diagnostic 1.97 ng/mL (0.0-4.0); Potassium 3.8 mmol/L (3.5-5.1); Sodium Level 141 mmol/L (136-145); Triglycerides 171 mg/dL; Very Low Density Lipoprotein 34 mg/dL (5-40)
== END | disposition home or self-care (01) ==
LOC: MFPLAB 09:31
PROVIDERS: PCP Family Medicine; Visit Provider Family Medicine
DX: I10 Essential (primary) hypertension (principal); R39.11 Hesitancy of micturition
CPT/HCPCS: 36415; 80048; 80061; 84153

== ENCOUNTER → 2024-03-24 | Outpatient (CLI) | payer MEDICARE, SELFPAY ==
[2024-03-24 11:14] LABS: Anion Gap 6 (5-15); BUN 18 mg/dL (7-18); BUN/Creat Ratio 18.8 RATIO (10-20); Calcium,Total 9.3 mg/dL (8.5-10.1); Chloride 110 mmol/L (98-107); Cholesterol 137 mg/dL (200); Creatinine, Serum 0.96 mg/dL (0.70-1.30); EST Glomerular Filtration Rate 83 mL/min (>60); Est Glom Filt Rate - Afr Amer 100 mL/min (>60); Glucose 116 mg/dL (74-106); High Density Lipoprotein 39 mg/dL; Potassium 3.7 mmol/L (3.5-5.1); Sodium Level 140 mmol/L (136-145); Triglycerides 104 mg/dL; Very Low Density Lipoprotein 21 mg/dL (5-40)
== END | disposition home or self-care (01) ==
LOC: MFPLAB 09:09
PROVIDERS: PCP Family Medicine; Visit Provider Family Medicine
DX: I10 Essential (primary) hypertension (principal)
CPT/HCPCS: 36415; 80048; 80061

== ENCOUNTER → 2024-10-22 | Outpatient (CLI) | payer MEDICARE, SELFPAY ==
[2024-10-22 12:20] LABS: AST(SGOT) 16 U/L (<=37); Alanine Aminotransfer ALT/SGPT 8 U/L (<=46); Albumin, Serum 4.3 g/dL (3.4-4.8); Alkaline Phosphatase 108 U/L (40-129); Anion Gap 11 (5-15); BUN 15 mg/dL (4-19); BUN/Creat Ratio 16.3 RATIO (10-20); Calcium,Total 9.7 mg/dL (7.6-11.0); Carbon Dioxide 25.0 mmol/L (21.0-32.0); Chloride 104 mmol/L (98-108); Globulin 2.2 g/dL (2.2-4.2); Glucose 98 mg/dL (70-99); Potassium 4.0 mmol/L (3.3-5.1)
--- OUTSIDE RECORDS SUMMARY | 2024-10-22 18:22 | XMS RPT_ITS | CCD ---
Author Organization [facility] Care Team Providers Care Coordinator Of Placement Name Role Phone Brown Juarez Primary Care Unavailable Brown Juarez Attending Unavailable Brown Juarez Primary Care Unavailable Brown Juarez Attending Unavailable Medications Current Medications Medication Drug Class(es) Dates Sig (Normalized) Sig (Original) amLODIPine 5 mg oral tablet (1 source) Dihydropyridine Calcium Channel Jane Start: 03-06-2023 take 5 mg by mouth once daily Amlodipine Active 5 MG PO DAILY March 06, 2023 12:00am hydroCHLOROthiazide 12.5 mg / losartan potassium 50 mg oral tablet (3 sources) Thiazide Diuretic, Angiotensin 2 Receptor Jane Start: 07-17-2016 take 1 tablet by mouth once daily Losartan/Hydroc hlorothiazide (Hyzaar 50-12.5 Tablet) 1 TAB tablet Active 1 TABLET PO DAILY July 16, 2016 11:00pm potassium chloride 10 meq extended release oral tablet (1 source) Start: 03-06-2023 take 10 mEq by mouth once daily Potassium Chloride Active 10 MEQ PO DAILY March 06, 2023 12:00am sertraline 25 mg oral tablet (1 source) Serotonin Reuptake Inhibitor Start: 03-06-2023 take 25 mg by mouth once daily Sertraline Active 25 MG PO DAILY March 06, 2023 12:00am simvastatin 20 mg oral tablet (10 sources) HMG-CoA Reductase Inhibitor Start: 03-06-2023 take 20 mg by mouth once daily Simvastatin Active 20 MG PO DAILY March 06, 2023 12:00am Start: 07-18-2016 End: 07-18-2016 take 40 mg by mouth every other day Simvastatin Discontinued 40 MG PO EVERY OTHER DAY 0 July 18, 2016 7:08am July 18, 2016 3:26pm Start: 07-18-2016 End: 03-06-2023 take 40 mg by mouth at bedtime Simvastatin Discontinue d 40 MG PO AT BEDTIME July 17, 2016 11:00pm March 06, 2023 2:44pm Start: 07-17-2016 End: 07-18-2016 take 20 mg by mouth every other day Simvastatin Discontinued 20 MG PO EVERY OTHER DAY July 16, 2016 11:00pm July 18, 2016 7:08am Completed/Discontinued Medications Medication Drug Class(es) Dates Sig (Normalized) Sig (Original) aspirin 81 mg delayed release oral tablet (1 source) Platelet Aggregation Inhibitor, Nonsteroidal Anti-inflammatory Drug Start: 03-06-2023 End: 03-06-2023 take 1 tablet by mouth once daily Aspirin (Adult Aspirin Regimen) 81 mg tablet,delayed release (DR/EC) Discontinued 81 MG PO DAILY March 06, 2023 12:00am March 06, 2023 2:54pm escitalopram 10 mg oral tablet (3 sources) Serotonin Reuptake Inhibitor Start: 07-17-2016 End: 03-06-2023 take 10 mg by mouth once daily Escitalopram Oxalate Discontinued 10 MG PO DAILY July 16, 2016 11:00pm March 06, 2023 2:42pm 24 hr metoprolol succinate 50 mg extended release oral tablet (9 sources) beta-Adrenergic Jane Start: 07-18-2016 End: 03-06-2023 take 50 mg by mouth once daily Metoprolol Succinate Discontinued 50 MG PO DAILY July 18, 2016 3:25pm March 06, 2023 2:42pm Start: 07-17-2016 End: 07-18-2016 take 1 tablet by mouth once daily Metoprolol Succinate (Toprol Xl) 100 MG Tab.Er.24h Discontinued 100 MG PO DAILY July 16, 2016 11:00pm July 18, 2016 3:19pm Problems Problem Classification Problem Date Documented Da te Episodic/Chronic Diabetes mellitus without complication (2 sources) Hyperglycemia; Translations: [Hyperglycemia, unspecified] 03-06-2023 Episodic Essential hypertension (4 sources) Hypertensive disorder; Translations: [Essential (primary) hypertension] Onset: 04-24-2024 04-17-2018 Chronic Fluid and electrolyte disorders (2 sources) Acute hypokalemia; Translations: [Hypokalemia] 03-06-2023 Episodic Spondylosis; intervertebral disc disorders; other back problems (3 sources) Neck pain; Translations: [Cervicalgia] 04-17-2018 Episodic Transient cerebral ischemia (6 sources) Cerebral ischemia; Translations: [Transient cerebral ischemic attack, unspecified] 04-17-2018 Chronic Results Test Name Value Interpretation Reference Range Facility Basic Metabolic Profile (BMP )on 03-24-2024 BUN/CRE 18.8 RATIO Normal 10-20 [facility] Comment on above: Performed By: #### L 500.2500, L500.4100 #### [facility] [address] [place], [address] CA,Total 9.3 mg/dL Normal 8.5-10.1 [facility] Comment on above: Performed By: #### L 500.2500, L500.4100 #### [facility] [address] [place], [address] Chloride [Moles/Vol] 110 mmol/L High 98-107 [facility] Comment on above: Performed By: #### L 500.2500, L500.4100 #### [facility] [address] [place], [address] CO2 [Moles/Vol] 24.0 mmol/L Normal 21.0-32.0 [facility] Comment on above: Performed By: #### L 500.2500, L500.4100 #### [facility] [address] [place], [address] Creatinine [Mass/Vol] 0.96 mg/dL Normal 0.70-1.30 [facility] Comment on above: Result Comment: The validity of the calculated GFR GFRAA in patients over 70 years has not been determined. Clinical correlation is essential. Performed By: #### L 500.2500, L500.4100 #### [facility] [address] [place], [address] EST GFR - AA 100 mL/min Normal >60 [facility] Comment on above: Result Comment: Afri can Filipino GFR Calc Performed By: #### L 500.2500, L500.4100 #### [facility] [address] [place], [address] GAP 6 Normal 5-15 [facility] Comment on above: Performed By: #### L 500.2500, L500.4100 #### [facility] [address] [place], [address] GFR/1.73 sq M.predicted among non-blacks MDRD (S/P/Bld) [Vol rate/Area] 83 mL/min/{1.73_m2} Normal >60 [facility] Comment on above: Result Comment: Non- GFR Calc Performed By: #### L 500.2500, L500.4100 #### [facility] [address] [place], [address] Glucose [Mass/Vol] 116 mg/dL High 74-106 [facility] Comment on above: Result Comment: Fast ing Glucose result from 100 to 125 mg/dL suggests IMPAIRED HOMEOSTASIS per A.D.A. criteria. Performed By: #### L 500.2500, L500.4100 #### [facility] [address] [place], [address] Potassium [Moles/Vol] 3.7 mmol/L Normal 3.5-5.1 [facility] Comment on above: Performed By: #### L 500.2500, L500.4100 #### [facility] [address] [place], [address] Sodium [Moles/Vol] 140 mmol/L Normal 136-145 [facility] Comment on above: Performed By: #### L 500.2500, L500.4100 #### [facility] [address] [place], [address] Urea nitrogen [Mass/Vol] 18 mg/dL Normal 7-18 [facility] Comment on above: Performed By: #### L 500.2500, L500.4100 #### [facility] [address] [place], [address] Lipid Profileon 03-24-2024 Cholesterol [Mass/Vol] 137 mg/dL Normal 200 [facility] Comment on above: Result Comment: <200 mg/dL Desirable 200-240 mg/dL Borderline >240 mg/dL High Risk Performed By: #### L 500.2500, L500.4100 #### [facility] [address] [place], [address] Cholesterol in HDL [Mass/Vol] 39 mg/dL Low [facility] Comment on above: Result Comment: The drugs N-Acetylcysteine and Metamizole may falsely depress this assay. Reference Range HDL <40 mg/dL Low HDL Cholesterol HDL >or= 60 mg/dL High HDL Cholesterol Performed By: #### L 500.2500, L500.4100 #### [facility] [address] [place], [address] Cholesterol in LDL [Mass/Vol] 77 mg/dL Normal 0-130 [facility] Comment on above: Performed By: #### L 500.2500, L500.4100 #### [facility] [address] [place], [address] Cholesterol in VLDL [Mass/Vol] 21 mg/dL Normal 5-40 [facility] Comment on above: Performed By: #### L 500.2500, L500.4100 #### [facility] [address] [place], [address] Triglyceride [Mass/Vol] 104 mg/dL Normal [facility] Comment on above: Result Comment: The drugs N-Acetylcysteine and Metamizole may falsely depress this assay. Serum Triglycerides Reference Interval Normal <150 mg/dL Borderline high 150 - 199 mg/dL High 200 - 499 mg/dL Very High > or = 500 mg/dL Performed By: #### L 500.2500, L500.4100 #### [facility] [address] [place], [address] Basic Metabolic Profile (BMP )on 10-30-2023 BUN/CRE 17.7 RATIO Normal 10-20 [facility] Comment on above: Performed By: #### L 501.9940, L500.4100, L500.2500 #### [facility] [address] [place], [address] CA,Total 9.2 mg/dL Normal 8.5-10.1 [facility] Comment on above: Performed By: #### L 501.9940, L500.4100, L500.2500 #### [facility] [address] [place], [address] Chloride [Moles/Vol] 111 mmol/L High 98-107 [facility] Comment on above: Performed By: #### L 501.9940, L500.4100, L500.2500 #### [facility] [address] [place], [address] CO2 [Moles/Vol] 25.0 mmol/L Normal 21.0-32.0 [facility] Comment on above: Performed By: #### L 501.9940, L500.4100, L500.2500 #### [facility] [address] [place], [address] Creatinine [Mass/Vol] 0.90 mg/dL Normal 0.70-1.30 [facility] Comment on above: Result Comment: The validity of the calculated GFR GFRAA in patients over 70 years has not been determined. Clinical correlation is essential. Performed By: #### L 501.9940, L500.4100, L500.2500 #### [facility] [address] [place], [address] EST GFR - AA 108 mL/min Normal >60 [facility] Comment on above: Result Comment: Afri can Filipino GFR Calc Performed By: #### L 501.9940, L500.4100, L500.2500 #### [facility] [address] [place], [address] GAP 5 Normal 5-15 [facility] Comment on above: Performed By: #### L 501.9940, L500.4100, L500.2500 #### [facility] [address] [place], [address] GFR/1.73 sq M.predicted among non-blacks MDRD (S/P/Bld) [Vol rate/Area] 89 mL/min/{1.73_m2} Normal >60 [facility] Comment on above: Result Comment: Non- GFR Calc Performed By: #### L 501.9940, L500.4100, L500.2500 #### [facility] [address] [place], [address] Glucose [Mass/Vol] 108 mg/dL High 74-106 [facility] Comment on above: Result Comment: Fast ing Glucose result from 100 to 125 mg/dL suggests IMPAIRED HOMEOSTASIS per A.D.A. criteria. Performed By: #### L 501.9940, L500.4100, L500.2500 #### [facility] [address] [place], [address] Potassium [Moles/Vol] 3.8 mmol/L Normal 3.5-5.1 [facility] Comment on above: Performed By: #### L 501.9940, L500.4100, L500.2500 #### [facility] [address] [place], [address] Sodium [Moles/Vol] 141 mmol/L Normal 136-145 [facility] Comment on above: Performed By: #### L 501.9940, L500.4100, L500.2500 #### [facility] [address] [place], [address] Urea nitrogen [Mass/Vol] 16 mg/dL Normal 7-18 [facility] Comment on above: Performed By: #### L 501.9940, L500.4100, L500.2500 #### [facility] [address] [place], [address] Lipid Profileon 10-30-2023 Cholesterol [Mass/Vol] 136 mg/dL Normal 200 [facility] Comment on above: Result Comment: <200 mg/dL Desirable 200-240 mg/dL Borderline >240 mg/dL High Risk Performed By: #### L 501.9940, L500.4100, L500.2500 #### [facility] [address] [place], [address] Cholesterol in HDL [Mass/Vol] 36 mg/dL Low [facility] Comment on above: Result Comment: The drugs N-Acetylcysteine and Metamizole may falsely depress this assay. Reference Range HDL <40 mg/dL Low HDL Cholesterol HDL >or= 60 mg/dL High HDL Cholesterol Performed By: #### L 501.9940, L500.4100, L500.2500 #### [facility] [address] [place], [address] Cholesterol in LDL [Mass/Vol] 66 mg/dL Normal 0-130 [facility] Comment on above: Performed By: #### L 501.9940, L500.4100, L500.2500 #### [facility] [address] [place], [address] Cholesterol in VLDL [Mass/Vol] 34 mg/dL Normal 5-40 [facility] Comment on above: Performed By: #### L 501.9940, L500.4100, L500.2500 #### [facility] [address] [place], [address] Triglyceride [Mass/Vol] 171 mg/dL Normal [facility] Comment on above: Result Comment: The drugs N-Acetylcysteine and Metamizole may falsely depress this assay. Serum Triglycerides Reference Interval Normal <150 mg/dL Borderline high 150 - 199 mg/dL High 200 - 499 mg/dL Very High > or = 500 mg/dL Performed By: #### L 501.9940, L500.4100, L500.2500 #### [facility] [address] [place], [address] PSA,Total- Diagnosticon 07-0 PSA, DIAGNOSTIC 1.97 ng/mL Normal 0.0-4.0 [facility] Comment on above: Result Comment: This test was performed using the TPSA assay method for the [employer] chemistry system. Values obtained with different assay methods cannot be used interchangably. When changing PSA assays in the course of monitoring a patient, additional sequential testing should be carried out to confirm baseline values. Performed By: #### L 501.9940, L500.4100, L500.2500 #### [facility] [address] [place], [address] Absolute lymphocyte countOrd ered By: Andrew Jimenes on 03-06-2023 Lymphocytes Auto (Unsp spec) [#/Vol] 2.36 10*3/uL 0.83-4.51 [facility] Basophil percentageOrdered B y: Andrew Jimenes on 03-06-2023 Ammonia (P) [Moles/Vol] 15.0 umol/L 11-32 [facility] Basophils/100 WBC (Bld) 0.6 % 0-1 [facility] Bilirubin [Mass/Vol] 0.70 mg/dL 0.20-1.00 [facility] Comment on above: For patients on eltr ombopag therapy, use of Dimension [facility] TBIL is not recommended. Chloride [Moles/Vol] 108 mmol/L 98-107 [facility] Eosinophils/100 WBC (Bld) 0.1 % 0-5 [facility] Glucose [Mass/Vol] 138 mg/dL 74-106 [facility] Comment on above: Fasting Glucose resu lt greater than or equal to 126 mg/dL suggests DIABETES MELLITUS per A.D.A. criteria. Neutrophils (Bld) [#/Vol] 11.5 10*3/uL 2.0-7.7 [facility] Neutrophils/100 WBC (Bld) 77.8 % 47-70 [facility] Potassium [Moles/Vol] 3.1 mmol/L 3.5-5.1 [facility] Protein [Mass/Vol] 6.9 g/dL 6.4-8.2 [facility] Sodium [Moles/Vol] 141 mmol/L 136-145 [facility] WBC (Bld) [#/Vol] 14.7 10*3/uL 4.4-11.0 [facility] Blood erythrocytes count (nu mber/volume)Ordered By: Andrew Jimenes on 03-06-2023 RBC (Bld) [#/Vol] 4.70 10*6/uL 4.6-6.2 [facility] Blood hemoglobin measurement (mass/volume)Ordered By: Andrew Jimenes on 03-06-2023 Hemoglobin (Bld) [Mass/Vol] 14.4 g/dL 13.0-16.5 [facility] Blood lymphocytes/100 leukoc ytesOrdered By: Andrew Jimenes on 03-06-2023 Lymphocytes/100 WBC (Bld) 16.0 % 19-41 [facility] Blood monocytes/100 leukocyt esOrdered By: Andrew Jimenes on 03-06-2023 Monocytes/100 WBC (Bld) 5.2 % 0-10 [facility] Blood platelet mean volumeOr dered By: Andrew Jimenes on 03-06-2023 Platelet mean volume (Bld) [Entitic vol] 10.4 fL 6.2-12.0 [facility] Determination of erythrocyte mean corpuscular volume (MCV)Ordered By: Andrew Jimenes on 03-06-2023 MCV (RBC) [Entitic vol] 89.6 fL 80-94 [facility] Hematocrit Auto (Bld) [Volum e fraction]Ordered By: Andrew Jimenes on 03-06-2023 Hematocrit (Bld) [Volume fraction] 42.1 % 40-54 [facility] - Chemistry and C hemistry - challengeOrdered By: Andrew Jimenes on 03-06-2023 ALP [Catalytic activity/Vol] 115 U/L 45-117 [facility] ALT [Catalytic activity/Vol] 26 U/L 16-61 [facility] CO2 [Moles/Vol] 25.0 mmol/L 21.0-32.0 [facility] Globulin (S) [Mass/Vol] 2.8 g/dL 2.2-4.2 [facility] Urea nitrogen/Creatinine [Mass ratio] 17.0 mg/mg 10-20 [facility] - Chemistry and C hemistry - challengeOrdered By: Chely Peralta on 03-06-2023 Magnesium [Mass/Vol] 2.0 mg/dL 1.6-2.6 [facility] - Drug toxicology Ordered By: Andrew Jimenes on 03-06-2023 Amphetamines Ql (U) Negative <1000 ng/mL [facility] Benzodiazepines Ql (U) Negative < 200 ng/mL [facility] Cannabinoids Screen Ql (U) Positive < 50 ng/mL [facility] Cocaine Ql (U) Negative < 300 ng/mL [facility] Opiates Ql (U) Negative < 300 ng/mL [facility] - Hematology and Cell countsOrdered By: Andrew Jimenes on 03-06-2023 Erythrocyte distribution width (RBC) [Entitic vol] 42.4 fL 35.1-43.9 [facility] Erythrocyte distribution width (RBC) [Ratio] 13.0 % 11.6-14.6 [facility] Immature granulocytes/100 WBC (Bld) 0.300 % 0.0-0.9 [facility] Comment on above: IG% - Immature Granu locytes (promyelocytes, myelocytes and metamyelocytes) > 1% indicates that a LEFT SHIFT is Present. MCH (RBC) [Entitic mass] 30.6 pg 27.0-32.0 [facility] Nucleated RBC/100 WBC (Bld) [Ratio] 0 % 0-5 [facility] MCHC Auto (RBC) [Mass/Vol]Or dered By: Andrew Jimenes on 03-06-2023 MCHC (RBC) [Mass/Vol] 34.2 g/dL 32-36 [facility] No Panel InformationOrdered By: Andrew Jimenes on 03-06-2023 MDMA (Ecstasy) Screen Negative < 500 ng/mL [facility] Urine Barbiturates Screen Negative < 200 ng/mL [facility] Urine Drug Screen Comment [facility] Comment on above: CONFIRMATORY TESTING FOR ALL POSITIVE URINE DRUG SCREENRESULTS WILL ONLY BE SENT OUT UPON PHYSICIAN ORDER. VISTA Urine Drug Screen methods provide only preliminaryanalytical test results. A more specific alternate chemicalmethod must be used in order to obtain a confirmedanalytical result. Gas chromatography/mass spectrometery(GC/MS) is the preferred confirmatory method. Clinicalconsideration and professional judgement should be appliedto any drug of abuse test result, particularly whenpreliminary positive results are used. URINE TCA TESTING MUST BE ORDERED SEPARATELY. USE TESTMNEMONIC: [facility] Urine Methadone Screen Negative < 300 ng/mL [facility] Estimated Creatinine Clearance Calc 68.82 ml/min [facility] Estimated GFR (MDRD) Amer 103 mL/min >60 [facility] Comment on above: GFR Calc Estimated GFR (MDRD) Non-Af Amer 85 mL/min >60 [facility] Comment on above: Non- GFR Calc Ethyl Alcohol Level < 3.0 mg/dL [facility] Comment on above: The serum:whole bloo d ethanol ratio is approximately 1.14and varies slightly with hematocrit. Medical Alcohol reference interval and critical value innon-tolerant individuals; 50 - 100 Impairment 100 Intoxication 100 - 250 Severe Poisoning 250 - 400 Deep/possible fatal coma Troponin I High Sensitivity 18 pg/mL 3.0-78.0 [facility] Comment on above: Please Note: New Josiane t Units and Gender Specific Reference Ranges. For more information see Policy Stat Procedure [facility] High Sensitivity Troponin (TNIH) and attachments. Platelets bldOrdered By: Chan Jimenes on 03-06-2023 Platelets (Bld) [#/Vol] 256 10*3/uL 150-450 [facility] Serum or plasma albumin tristan urement (mass/volume)Ordered By: Andrew Jimenes on 03-06-2023 Albumin [Mass/Vol] 4.1 g/dL 3.2-5.0 [facility] Serum or plasma albumin/glob ulin mass ratioOrdered By: Andrew Jimenes on 03-06-2023 Albumin/Globulin [Mass ratio] 1.5 {ratio} 0.9-2.4 [facility] Serum or plasma calcium tristan urement (mass/volume)Ordered By: Andrew Jimenes on 03-06-2023 Calcium [Mass/Vol] 9.1 mg/dL 8.5-10.1 [facility] Serum or plasma creatinine m easurement (mass/volume)Ordered By: Andrew iJmenes on 03-06-2023 Creatinine [Mass/Vol] 0.94 mg/dL 0.70-1.30 [facility] Comment on above: The validity of the calculated GFR & GFRAA in patients over 70 years has not been determined. Clinical correlation is essential. Serum or plasma urea nitroge n measurement (mass/volume)Ordered By: Andrew Jimenes on 03-06-2023 Urea nitrogen [Mass/Vol] 16 mg/dL 7-18 [facility] Thin prep Papanicolaou smear with manual screeningOrdered By: Andrew Jimenes on 03-06-2023 Thin prep Papanicolaou smear with manual screening 14 U/L 15-37 [facility] Thin prep Papanicolaou smear with manual screening 8 5-15 [facility] Urine phencyclidine (PCP) de tectionOrdered By: Andrew Jimenes on 03-06-2023 Phencyclidine Ql (U) Negative < 25 ng/mL [facility] Basophil percentageOrdered B y: Dr. Juarez on 07-03-2022 Chloride [Moles/Vol] 107 mmol/L 98-107 [facility] Glucose [Mass/Vol] 122 mg/dL 74-106 [facility] Comment on above: Fasting Glucose resu lt from 100 to 125 mg/dL suggests IMPAIRED HOMEOSTASIS per A.D.A. criteria. Potassium [Moles/Vol] 3.4 mmol/L 3.5-5.1 [facility] Sodium [Moles/Vol] 140 mmol/L 136-145 [facility] Laboratory - Chemistry and C hemistry - challengeOrdered By: Dr. Juarez on 07-03-2022 CO2 [Moles/Vol] 24.0 mmol/L 21.0-32.0 [facility] Urea nitrogen/Creatinine [Mass ratio] 17.5 mg/mg 10-20 [facility] No Panel InformationOrdered By: Dr. Juarez on 07-03-2022 Estimated GFR (MDRD) Amer 100 mL/min >60 [facility] Comment on above: GFR Calc Estimated GFR (MDRD) Non-Af Amer 82 mL/min >60 [facility] Comment on above: Non- GFR Calc Serum or plasma calcium tristan urement (mass/volume)Ordered By: Dr. Juarez on 07-03-2022 Calcium [Mass/Vol] 9.6 mg/dL 8.5-10.1 [facility] Serum or plasma creatinine m easurement (mass/volume)Ordered By: Dr. Juarez on 07-03-2022 Creatinine [Mass/Vol] 0.97 mg/dL 0.70-1.30 [facility] Comment on above: The validity of the calculated GFR & GFRAA in patients over 70 years has not been determined. Clinical correlation is essential. Serum or plasma urea nitroge n measurement (mass/volume)Ordered By: Dr. Juarez on 07-03-2022 Urea nitrogen [Mass/Vol] 17 mg/dL 7-18 [facility] Thin prep Papanicolaou smear with manual screeningOrdered By: Dr. Juarez on 07-03-2022 Thin prep Papanicolaou smear with manual screening 9 5-15 [facility] Whole blood hemoglobin A1c/t otal hemoglobin ratio (mass fraction)Ordered By: Dr. Juarez on 07-03-2022 HbA1c (Bld) [Mass fraction] 5.6 % 3.8-5.6 [facility] Comment on above: Normal < 5.7 % Predi abetic 5.7 - 6.4 % Diabetic >or= 6.5 % Please note range changes. Basophil percentageon 2021 Bilirubin [Mass/Vol] 0.40 mg/dL 0.20-1.00 [facility] Work Phone: Comment on above: For patients on eltr ombopag therapy, use of Dimension [place] TBIL is not recommended. Chloride [Moles/Vol] 108 mmol/L 98-107 [facility] Work Phone: Cholesterol [Mass/Vol] 118 mg/dL <200 [facility] Work Phone: Comment on above: <200 mg/dL Desirable 200-240 mg/dL Borderline >240 mg/dL High Risk Glucose [Mass/Vol] 99 mg/dL 74-106 [facility] Work Phone: Potassium [Moles/Vol] 3.5 mmol/L 3.5-5.1 [facility] Work Phone: Protein [Mass/Vol] 6.5 g/dL 6.4-8.2 [facility] Work Phone: Sodium [Moles/Vol] 143 mmol/L 136-145 [facility] Work Phone: [phone] Triglyceride [Mass/Vol] 163 mg/dL <199 [facility] Work Phone: Comment on above: The drugs N-Acetylcy steine and Metamizole may falsely depress this assay.Serum Triglycerides Reference Interval Normal <150 mg/dL Borderline high 150 - 199 mg/dL High 200 - 499 mg/dL Very High > or = 500 mg/dL Laboratory - Chemistry and C hemistry - challengeon 01-16-2022 ALP [Catalytic activity/Vol] 91 U/L 45-117 [facility] Work Phone: ALT [Catalytic activity/Vol] 17 U/L 16-61 [facility] Work Phone: [phone] CO2 [Moles/Vol] 28.0 mmol/L 21.0-32.0 [facility] Work Phone: [phone] Globulin (S) [Mass/Vol] 3.0 g/dL 2.2-4.2 [facility] Work Phone: Urea nitrogen/Creatinine [Mass ratio] 17.6 mg/mg 10-20 [facility] Work Phone: No Panel Informationon 01-16 Estimated GFR (MDRD) Amer 116 mL/min >60 [facility] Work Phone: [phone] Comment on above: GFR Calc Estimated GFR (MDRD) Non-Af Amer 96 mL/min >60 [facility] Work Phone: Comment on above: Non- GFR Calc Serum or plasma albumin tristan urement (mass/volume)on 01-16-2022 Albumin [Mass/Vol] 3.5 g/dL 3.2-5.0 [facility] Work Phone: Serum or plasma albumin/glob ulin mass ratioon 01-16-2022 Albumin/Globulin [Mass ratio] 1.2 {ratio} 0.9-2.4 [facility] Work Phone: Serum or plasma calcium tristan urement (mass/volume)on 01-16-2022 Calcium [Mass/Vol] 9.1 mg/dL 8.5-10.1 [facility] Work Phone: Serum or plasma cholesterol in HDL measurement (mass/volume)on 01-16-2022 Cholesterol in HDL [Mass/Vol] 35 mg/dL >40 [facility] Work Phone: Comment on above: The drugs N-Acetylcy steine and Metamizole may falsely depress this assay. Reference Range HDL <40 mg/dL Low HDL Cholesterol HDL >or= 60 mg/dL High HDL Cholesterol Serum or plasma cholesterol in VLDL measurement (mass/volume)on 01-16-2022 Cholesterol in VLDL [Mass/Vol] 33 mg/dL 5-40 [facility] Work Phone: Serum or plasma creatinine m easurement (mass/volume)on 01-16-2022 Creatinine [Mass/Vol] 0.85 mg/dL 0.70-1.30 [facility] Work Phone: Comment on above: The validity of the calculated GFR & GFRAA in patients over 70 years has not been determined. Clinical correlation is essential. Serum or plasma low density lipoprotein (LDL) cholesterol measurement (mass/volume)on 01-16-2022 Cholesterol in LDL [Mass/Vol] 50 mg/dL 0-130 [facility] Work Phone: Serum or plasma urea nitroge n measurement (mass/volume)on 01-16-2022 Urea nitrogen [Mass/Vol] 15 mg/dL 7-18 [facility] Work Phone: [phone] Thin prep Papanicolaou smear with manual screeningon 01-16-2022 Thin prep Papanicolaou smear with manual screening 12 U/L 15-37 [facility] Work Phone: [phone] Thin prep Papanicolaou smear with manual screening 7 5-15 [facility] Work Phone: [phone] Vital Signs Date Time Vital Sign Value Performing Clinician Madeleine blanc 03-06-2023 17:07-0500 Diastolic blood pressure 69 mm[Hg] [facility] 03-06-2023 17:07-0500 Heart rate 48 /min [facility] 03-06-2023 17:07-0500 Respiratory rate 16 /min [facility] 03-06-2023 17:07-0500 Systolic blood pressure 150 mm[Hg] [facility] 03-06-2023 12:24-0500 Body height 167.64 cm [facility] 03-06-2023 12:24-0500 Body mass index (BMI) [Ratio] 28 kg/m2 [facility] 03-06-2023 12:24-0500 Body temperature 97.9 [degF] [facility] 03-06-2023 12:24-0500 Body weight 78.92 kg [facility] 03-06-2023 12:24-0500 SaO2% (BldA) [Mass fraction] 100 % [facility] Encounters Encounter Date Encounter Type Care Provider Facility Start: 03-24-2024 End: 03-24-2024 ambulatory [facility] Facility:[facility] Start: 10-30-2023 End: 10-30-2023 [facility] Facility:[facility] Start: 03-06-2023 Evaluation and manag ement of inpatient [facility] Work Phone: Start: 03-06-2023 observation encounter [facility] Work Phone: Start: 07-03-2022 End: 07-03-2022 ambulatory [facility] Work Phone: Start: 07-03-2022 End: 07-03-2022 Patient encounter procedure [facility] Start: 01-16-2022 End: 01-16-2022 ambulatory [facility] Work Phone: Start: 01-16-2022 End: 01-16-2022 Patient encounter procedure [facility] Procedures Date Procedure Procedure Detail Performing Clinician Start: 03-06-2023 Plain chest X-ray Start: 03-06-2023 CT angiography of he ad and neck Plan of Treatment Date Care Activity Detail Author Start: 03-06-2023 Verification routine [facility] Start: 03-06-2023 Admission procedure [facility] Start: 03-06-2023 Hospital admission, emergency, from emergency room, medical nature [facility] Patient referral [facility] Work Phone: Immunizations Immunization Date Immunization Notes Care Provider Fa cility 07-30-2020 Covid (Pfizer) [facility] 07-09-2020 Covid (Pfizer) [facility] Payers Date Payer Category Payer Self-pay [id number] 2023 Unknown [id number] Unknown [employer] [id number] Unknown [id number] Unknown [id number] Unknown [id number] Social History Date Type Detail Facility Start: 07-18-2016 End: 03-06-2023 Tobacco smoking status NHIS Unknown if ever smoked [facility] End: 04-23-2015 History of tobacco use [facility] Work Phone: Start: 07-18-2016 Rare [facility] Start: 07-18-2016 None;Marijuana [facility] Start: 07-18-2016 Spouse/ Signif icant Other [facility] Start: 07-18-2016 Non-smoker [facility] Start: 1955 Sex Assigned At Male [facility] Mental Status Date Assessment Result Facility 03-06-2023 Cognitive function Disoriented [facility] Work Phone: Discharge summary 03-06-2023 Note Date & Type Note Facility 03-06-2023 Discharge summary Note Date/Time March 06, 2023 12:47pm [facility] Medical Records Department [address] [place] [address] Emergency Department Summary 03/06/23 MR#: [id number] Acct: [id number] Name: CORTNEY BLISS Rep #:[id number] : 1955 67 From: Andrew Jimenes MD PCP: Care Physician,No Primary Status :REG ER Location: ED HPI History of Present Illness Chief Complaint: Confusion Informant: patient and spouse/S.O. Narrative Narrative: Patient presents with confusion that started about 1 and half to 2 hours ago. This patient does have high blood pressure and cholesterol. He takes a medicinefor blood pressure which I suspect is metoprolol based on his heart rate. He dawood simvastatin and also evidently some potassium supplementation. These have been taken and no changes or new medicines. Evidently the patient woke up today. He took family member to school and came back and evidently had no troubles with this. But then about an hour and a halfor 2 hours ago he seemed to be confused. He had gotten a message on his machinethat was the wrong number. He could not seem to figure this out although his did very quickly. He has been asking similar questions over and over. No falling. No facial droop or speech changes. He realizes he is confused. He had an episode similar to this about 6 years ago. But it sounds like it did notlast quite as long and it involved actually some arm tingling also. I did review some of the reports from that and even after he was admitted and an MRI was done on the no indication of stroke. He has never had a seizure. No drug or alcohol abuse. He does not feel ill at all but he is not thinking clearly asper his normal. PFSH PFS Home Medications Losartan/Hydrochlorothiazide [Hyzaar 50-12.5 Tablet] 1 tab PO DAILY 07/17/16 [History Last Taken 07/16/16] amlodipine 5 mg tablet 5 mg PO DAILY 03/06/23 [History Last Taken Unknown] aspirin 81 mg tablet,delayed release (Adult Aspirin Regimen) 81 mg PO DAILY 03/06/23 [History Last Taken Unknown] potassium chloride 10 mEq tablet,extended release 10 meq PO DAILY 03/06/23 [History Last Taken Unknown] sertraline 25 mg tablet 25 mg PO DAILY 03/06/23 [History Last Taken Unknown] simvastatin 20 mg tablet 20 mg PO DAILY 03/06/23 [History Last Taken Unknown] Allergy/AdvReac Type Severity Reaction Status Date / Time No Known Allergies Allergy Verified 07/09/20 13:48 Social History (System 04/17/18 @ 12:35 by Sallie Cochran) Smoking Status: Current every day smoker tobacco type: cigars ROS ROS ED ROS Narrative A complete review of systems was performed and is negative except as documented in the history of present illness. Some specific details below. Constitutional: No recent fevers or chills. No rigors. Patient has not generallyfelt ill. He does not feel ill now. EYE: No discharge, visual complaints, or pain. No visual field cut ENT: No difficulty swallowing. CV: No chest pain, pressure or aching. No palpitations or irregular beats. Patient has not been presyncopal or syncopal. Respiratory: No trouble breathing. No cough. No wheezing. No sputum production. No pain with breathing. GI: No abdominal pain. No nausea vomiting diarrhea. No blood in stool. : No frequency dysuria or hematuria. Musculoskeletal: No recent trauma. No pains. No swelling. Skin: No rash. Nondiaphoretic. Neuro: No focal weakness or numbness. No difficulty with speaking. No difficultyunderstanding speech. No visual loss. Please see history of present illness also. Patient did tell his that he felt dizzy at home. But he does not recall that and he does not feel dizzy at this time. I cannot define the symptom better as he does not recall it. But he did not fall. Endocrine: No polyuria or polydipsia. EXAM Physical Exam Narrative Exam Narrative: General: Patient is awake alert nontoxic sitting comfortably in the bed. Pleasant and cooperative. HEENT shows no asymmetry. No sign of trauma. Mucous membranes are minimally dry. Eyes: Normal range of motion. No visual field cut on direct confrontation. Neck is supple. I do not hear any carotid bruits. Heart is regular with a rate of about 60. I hear no murmur. It does not sound like he is in atrial fibrillation. Lungs are clear and there is no hypoxia. He is under percent on room air. Abdomen is soft nontender. Extremities show no edema cords swelling or tenderness. Neurologic: Patient still has a sense of humor. He is awake alert and appropriate. He knows where he is his name but he had trouble with the year. He did know the president [facility]. There is no focal weakness or numbness. No discoordination. He has an NIH of 1 for failure to get the month correct. He was able to get his date of month day and year correct. Const Vital Signs: 03/06/23 12:24 Temperature 97.9 F Temperature Source Temporal Pulse Rate 57 L Respiratory Rate 14 Blood Pressure 174/70 H Blood Pressure Mean 104 Pulse Ox 100 Oxygen Delivery Method Room Air MDM MDM MDM Narrative Medical decision making narrative: Patient has acute confusion without any lateralizing deficit. He had this before and had negative work-up for stroke but that was 6 years ago. He does have some risk factors with cholesterol and blood pressure. He is evidently hadfamily members who have had strokes in their 60s. He has an NIH of 1 now. I donot think this justifies tPA at this time but TIA and stroke is certainly a possibility. We will also look up metabolic sources. Although I do not think he has been drinking I will do tox and alcohol. My independent interpretation of the patient's CT of the head shows no acute process and final reading of the CTA is negative for any significant abnormality. There is calcific plaque but no stenosis. Patient CBC shows patient metabolic panel shows mild white count which is nonspecific. He has had this in the past. No complaints consistent with infection. Electrolytes show mildly low potassium at 3.1 which is replaced. He is on hydrochlorothiazide and takes 10 mill equivalents a day of potassium and has a history of hypokalemia. But I still do not think his symptoms are justified as being caused by this alone. Mild elevation of glucose at 138. Patient's liver function test shows no marked abnormalities. Patient's ammonia is normal. Patient's troponin is normal at 18. Patient's alcohol is negative. Patient's urine toxicology screen is positive for cannabinoids. Lab Data Attestation: I reviewed the patient's lab results. Labs: Laboratory Results - last 24 hr 03/06/23 03/06/23 12:55 13:35 WBC 14.7 H RBC 4.70 Hgb 14.4 Hct 42.1 MCV 89.6 MCH 30.6 MCHC 34.2 RDW Std Deviation 42.4 RDW Coeff of Abrahan 13.0 Plt Count 256 MPV 10.4 Immature Gran % (Auto) 0.300 Neut % (Auto) 77.8 H Lymph % (Auto) 16.0 L Elbert % (Auto) 5.2 Eos % (Auto) 0.1 Baso % (Auto) 0.6 Absolute Neuts (auto) 11.5 H Absolute Lymphs (auto) 2.36 Nucleated RBC % 0 Sodium 141 Potassium 3.1 L Chloride 108 H Carbon Dioxide 25.0 Anion Gap 8 BUN 16 Creatinine 0.94 Estim Creat Clear Calc 68.82 Est GFR (MDRD) Af Amer 103 Est GFR (MDRD) Non-Af 85 BUN/Creatinine Ratio 17.0 Glucose 138 H Calcium 9.1 Total Bilirubin 0.70 AST 14 L ALT 26 Alkaline Phosphatase 115 Ammonia 15.0 Troponin I High Sens 18 Total Protein 6.9 Albumin 4.1 Globulin 2.8 Albumin/Globulin Ratio 1.5 Urine Opiates Screen NEGATIVE Urine Methadone Screen NEGATIVE Ur Barbiturates Screen NEGATIVE Ur Phencyclidine Scrn NEGATIVE Ur Amphetamines Screen NEGATIVE MDMA (Ecstasy) Screen NEGATIVE U Benzodiazepines Scrn NEGATIVE Urine Cocaine Screen NEGATIVE U Cannabinoids Screen POSITIVE H Ur Drug Screen Comment Ethyl Alcohol < 3.0 Radiography Diagnostic Testing: Clinical Impression(s) from Imaging Studies Head/Neck CTA 03/06/23 12:38 IMPRESSION: Atherosclerotic calcific plaque at the origin of the right and left internal carotid artery without significant stenosis. Mild cerebral atrophy. Electronically Signed: Rashaun Blount MD at 14:22 EST , Chest X-Ray 03/06/23 14:03 IMPRESSION: Hyperinflation. COPD. Electronically Signed: Rashaun Blount MD at 14:30 EST , EKG Initial EKG: Comments: My independent interpretation of the patient's EKG shows a normal sinus rhythm but bradycardic rate at 53. No ectopy. No sign of A-fib. No acute ST elevation or depression. Mild nonspecific changes. HI interval, QRS duration and QTc are normal. Discharge Plan Triage Chief Complaint: Confusion ED Provider: Andrew Jimenes Dx/Rx/DC Orders Clinical Impression: Amnesia, global, transient, Elevated blood sugar, Acute hypokalemia Prescriptions: No Action Losartan/Hydrochlorothiazide [Hyzaar 50-12.5 Tablet] 1 TAB tablet 1 tab PO DAILY Patient Comments: blood pressure amlodipine 5 mg tablet 5 mg PO DAILY Patient Comments: TAKE 1 TABLET BY MOUTH DAILY potassium chloride 10 mEq tablet extended release 10 meq PO DAILY Patient Comments: Take 1 tablet by mouth daily sertraline 25 mg tablet 25 mg PO DAILY Patient Comments: TAKE 1 TABLET BY MOUTH EVERY DAY simvastatin 20 mg tablet 20 mg PO DAILY Patient Comments: Take 1 tablet by mouth daily aspirin [Adult Aspirin Regimen] 81 mg tablet,delayed release (DR/EC) 81 mg PO DAILY Primary Care Provider: Care Physician,No Primary Referrals: Brown Juarez MD [Med Staff - Active Staff] - Disposition Disposition: Acute Care Hospital [facility] What to do if you have Problems For any increased pain, shortness of breath, bleeding, nausea or vomiting, chestpain, or any unexpected problems, contact your Primary Care Provider. Call [facility] ([phone]) or report to the closest Emergency Room. Call 911 if necessary. 03/06/23 1451 <Electronically signed by Andrew Jimenes MD> Cosigner Signature (if applicable): CC: No Primary Care Physician ~ Signed [facility] Work Phone: History and physical note 03-06-2023 Note Date & Type Note Facility 03-06-2023 History and physi chiquis note Note Date/Time March 06, 2023 2:47pm [facility] Medical Records Department [address] [place] [address] H&P Exam - Hospitalist 03/06/23 1446 MR#: [id number] Acct: [id number] Name: CORTNEY BLISS Rep #:[id number] : 1955 67 From: Chely Peralta MD PCP: Care Physician,No Primary Status :ADM JASEN Location: [place] [address] HPI - General General Date of Admission: 03/06/23 Date of Service: 03/06/23 Chief Complaint: Confusion. HPI Narrative The patient is a 67 y/o M w/ PMHx: Anxiety and Depression, HTN, HLD, Former cigarette tobacco use-->cigar daily use who presents to the [facility] ED on 03/06/23 with history of awaking on day of presentation reportedly taking a family memberto school and upon his return approximately an hour to 2 hours following this became very confused reportedly receiving a message on his voicemail that he wasunable to understand with the realization that he felt confused with history of similar episode approximately 6 years prior which at that time did not last longat all however at that time he also had some upper extremity paresthesias with negative MRI and no evidence of any seizure at that time but given this recurrence prompted ED evaluation. In the ED initial NIH stroke score 1. Upon ED evaluation in addition to difficulty with orientation questions on examination did note a very mild flattening to the left nasolabial fold and did report that approximately 2 days prior patient did state that his face on that side felt mildly puffy and she did believe that potentially that was the cause of theappearance but now looking at it she says she feels as though this is not his normal. Work-up in the ED included T97.9, heart rate 57, BP 174/70, respiratoryrate 14, 100% on room air, CBC with WBC 14.7, hemoglobin 14.4, platelet 256 withleft shift, EKG with sinus bradycardia with no acute evidence of ischemia, CMP with potassium 3.1, chloride 108, glucose 138 otherwise hepatic profile unremarkable, ammonia 15, troponin 18, ethyl alcohol less than 3, chest x-ray with no acute cardiopulmonary findings with evidence of COPD/hyperinflation, CTAhead neck Atherosclerotic calcific plaque at the origin of the right and left nternal carotid artery without significant stenosis, mild cerebral atrophy, UDS with + cannabis. In the ED patient administered FS ASA and potassium 40 mill equivalent p.o. x1. PFSH Medical History Anxiety and depression Chronic hypokalemia Hyperlipidemia Hypertension Tobacco use Home Medications Losartan/Hydrochlorothiazide [Hyzaar 50-12.5 Tablet] 1 tab PO DAILY 07/17/16 [History Last Taken 07/16/16] amlodipine 5 mg tablet 5 mg PO DAILY 03/06/23 [History Last Taken Unknown] potassium chloride 10 mEq tablet,extended release 10 meq PO DAILY 03/06/23 [History Last Taken Unknown] sertraline 25 mg tablet 25 mg PO DAILY 03/06/23 [History Last Taken Unknown] simvastatin 20 mg tablet 20 mg PO DAILY 03/06/23 [History Last Taken Unknown] Allergy/AdvReac Type Severity Reaction Status Date / Time No Known Allergies Allergy Verified 07/09/20 13:48 Family History (Updated 03/06/23 @ 15:[address] Chely Peralta MD) Mother CVA (cerebral vascular accident) Alcoholism Father CAD (coronary artery disease) Heart disease Hypertension Myocardial infarction Surgical History (Updated 03/06/23 @ 15:[address] Chely Peralta MD) History of dental surgery Social History (Updated 03/06/23 @ 16:[address] Chely Peralta MD) household members: spouse Smoking Status: Current every day smoker how long ago did patient quit smoking: Stopped cigarette tobacco ~ 3 yrs ago-->1 cigar daily. alcohol intake: current alcohol intake frequency: holidays/special occasions only substance use type: does not use ROS ROS Narrative Admission Review of Systems: CONSTITUTIONAL: No weight loss, fever, chills, + weakness or fatigue. HEENT: + Mild L facial flattening. Eyes: No visual loss, blurred vision, double vision or yellow sclerae. Ears, Nose, Throat: No hearing loss, sneezing, congestion, runny nose or sore throat. SKIN: No rash or itching, lesions, wounds. CARDIOVASCULAR: No chest pain, chest pressure or chest discomfort, palpitations,edema, orthopnea, syncopal events. RESPIRATORY: No shortness of breath, cough or sputum, wheezing, hemoptysis. GASTROINTESTINAL: No anorexia, nausea, vomiting or diarrhea, abdominal pain, melena, BRBPR. GENITOURINARY: No dysuria, frequency, urgency or retention. NEUROLOGICAL: + Mild L facial flattening, confusion. No headache, dizziness, syncope, paralysis, ataxia, numbness or tingling in the extremities, focal weakness, change in bowel or bladder control, seizure. MUSCULOSKELETAL: + muscle, back pain, joint pain or stiffness. HEMATOLOGIC: No anemia, bleeding or bruising. LYMPHATICS: No enlarged nodes. No history of splenectomy. PSYCHIATRIC: + history of depression or anxiety. ENDOCRINOLOGIC: No reports of sweating, cold or heat intolerance. No polyuria orpolydipsia. ALLERGIES: No history of asthma, hives, eczema or rhinitis. Vital Signs Vital Signs Vital Signs: 03/06/23 12:24 Temperature 97.9 F Temperature Source Temporal Pulse Rate 57 L Respiratory Rate 14 Blood Pressure 174/70 H Blood Pressure Mean 104 Pulse Ox 100 Oxygen Delivery Method Room Air Weight Weight: 174 lb Body Mass Index (BMI) 28.0 Physical Exam Narrative Physical Examination: General: Awake, alert, oriented to self, place, president however he gives the wrong year in the wrong month, family does note that this is improved since his initial, remains cooperative, seated upright in the ED bed in no apparent distress. Skin: Normal color, normal turgor, no icterus, no cyanosis. HEENT: AT/NC, EOMI, PERRLA, MMM, no carotid bruits or JVD noted, mild flatteningof the left nasolabial fold which family believes is new over the last 2 days. Lungs: CTA bilaterally, moderate effort, mild decrease BL bases, no rales, ronchi or wheezing. Heart: Regular rate and rhythm; no gallop, rub audible. Abdomen: Soft, NTTP, ND, mildly hyperactive BS, no HSM. Extremities: No cyanosis, clubbing, or edema. Neurological: Patient awake, alert, oriented as noted, cognitive function not currently baseline intact; pupils equally reactive to light and accommodation, cranial nerves grossly normal except evaluation notable for mild left nasolabialflattening, moving all 4 extremities, strength preserved, FTN and HTS appropriate, sensation intact, equivocal Babinski. Psychiatric: Affect appears fatigued otherwise normal, no acute evidence of depressive or anxiety feelings but does have underlying history. Results Lab / Micro Data 03/06/23 12:55 03/06/23 12:55 Labs: Laboratory Results - last 24 hr 03/06/23 12:55: WBC 14.7 H, RBC 4.70, Hgb 14.4, Hct 42.1, MCV 89.6, MCH 30.6, MCHC 34.2, RDW Std Deviation 42.4, RDW Coeff of Abrahan 13.0, Plt Count 256, MPV 10.4, Immature Gran % (Auto) 0.300, Neut % (Auto) 77.8 H, Lymph % (Auto) 16.0 L,Elbert % (Auto) 5.2, Eos % (Auto) 0.1, Baso % (Auto) 0.6, Absolute Neuts (auto) 11.5 H, Absolute Lymphs (auto) 2.36, Nucleated RBC % 0, Sodium 141, Potassium 3.1 L, Chloride 108 H, Carbon Dioxide 25.0, Anion Gap 8, BUN 16, Creatinine 0.94, Estim Creat Clear Calc 68.82, Est GFR (MDRD) Af Amer 103, Est GFR (MDRD) Non-Af 85, BUN/Creatinine Ratio 17.0, Glucose 138 H, Calcium 9.1, Total Bilirubin 0.70, AST 14 L, ALT 26, Alkaline Phosphatase 115, Ammonia 15.0, Troponin I High Sens 18, Total Protein 6.9, Albumin 4.1, Globulin 2.8, Albumin/Globulin Ratio 1.5, Ethyl Alcohol < 3.0 03/06/23 13:35: Urine Opiates Screen NEGATIVE, Urine Methadone Screen NEGATIVE, Ur Barbiturates Screen NEGATIVE, Ur Phencyclidine Scrn NEGATIVE, Ur AmphetaminesScreen NEGATIVE, MDMA (Ecstasy) Screen NEGATIVE, U Benzodiazepines Scrn NEGATIVE, Urine Cocaine Screen NEGATIVE, U Cannabinoids Screen POSITIVE H, Ur Drug Screen Comment Radiology Impression Head/Neck CTA 03/06/23 12:38 IMPRESSION: Atherosclerotic calcific plaque at the origin of the right and left internal carotid artery without significant stenosis. Mild cerebral atrophy. Electronically Signed: Rashaun Blount MD at 14:22 EST , Chest X-Ray 03/06/23 14:03 IMPRESSION: Hyperinflation. COPD. Electronically Signed: Rashaun Blount MD at 14:30 EST , Assessment & Plan Assessment/Plan (1) TIA (transient ischemic attack): QUALIFIERS: Transient cerebral ischemia type: unspecified Qualified Code(s): G45.9 - Transient cerebral ischemic attack, unspecified (2) Amnesia, global, transient: PLAN: Plan The patient is a 67 y/o M w/ PMHx: Anxiety and Depression, HTN, HLD, Former cigarette tobacco use-->cigar daily use who presents to the [facility] ED on 03/06/23 with history of awaking on day of presentation reportedly taking a family memberto school and upon his return approximately an hour to 2 hours following this became very confused reportedly receiving a message on his voicemail that he wasunable to understand with the realization that he felt confused with history of similar episode approximately 6 years prior which at that time did not last longat all however at that time he also had some upper extremity paresthesias with negative MRI and no evidence of any seizure at that time but given this recurrence prompted ED evaluation. #1. Transient global amnesia and mild L nasolabial flattening concerning for CVA: Will admit to PCU, will obtain MRI Brain, MRA Head and Neck, ECHO, PT/OT/Speech/Nutrition evaluation per protocol. Will allow permissive HTN, maintain on asa, continue home statin w/ AM FLP, fall precautions. Mag, TSH, FLP, HgbA1c requested. Maintain on fall and aspiration precautions. #2. Hypokalemia: Admission K+ 3.1, magnesium level requested, supplementation given, repeat level in AM. #3. Hyperglycemia, mild: Admission glucose 138, mildly elevated, human A1c requested per stroke protocol as noted above. #4. Hypertension: We will maintain permissive hypertension with as needed agents per stroke protocol. #5. Hyperlipidemia: Continue home statin regimen. AM FLP. #6. Anxiety and depression: We will continue patient home escitalopram regimen. #7. Former tobacco use: Encourage continued tobacco cessation. #8. DVT prophylaxis: Lovenox. Charges/Coding Visit Charges Inpatient E&M: 41286 Init Hosp L3 03/06/23 1602 <Electronically signed by Chely Peralta MD> Cosigner Signature (if applicable): CC: Dr. Chely Peralta MD; No Primary Care Physician~ Signed [facility] Work Phone: Evaluation note Note Date & Type Note Facility Evaluation note No assessment information availa ble [facility] Work Phone: Evaluation note Note Date & Type Note Facility Evaluation note Diagnosis Onset Date Acute hypokalemia acute Amnesia, global, transient a cute Elevated blood sugar acute TIA (transient ischemic attack) acute [facility] Work Phone: Family History No Family History Records Found Relationship Condition Age at Onset Recorded Date/T eyad Unknown Family History?Cancer Unknown July 18, 2016 10:55am Family History?Cance r, Heart Disease Unknown July 18, 2016 10:55am Family History?Heart Disease, - Unknown July 18, 2016 10:55am Relationship Condition Age at Onset Recorded Date/T eyad mother Cerebrovascular accident (CVA) Unknown Alcoholism Unknown father Coronary artery disease Unknown Cardiac disease Unknown Hypertension Unknown Myocardial infarction Unknown Advance Directives No Advanced Directives Records Found Advance Directive Response Recorded Date/ Time Living Will No July 18, 2016 10:25am Power of Crane Manager No July 18 10:25am Advance Directive Response Recorded Date/ Time Living Will No March 06 1:02pm Power of Crane Manager No March 06, 2023 1:02pm Chief Complaint and Reason for Visit Chief Complaint TGA Reason for Visit Acute hypokalemia Amnesia, global, transient Elevated blood sugar TIA (transient ischemic attack) Summary Purpose Additional Source Comments Goals (unrecognized section and content) Goals may be documented in a n alternate sectionGoals may be documented in an alternate sectionGoals may be documented in an alternate section Care Teams (unrecognized sec tion and content) Team Status: Active Member Role Status Dates Dr. Chris Cochran MD Family Provider Active Dr. Brown Juarez MD Primary Care Provider Active Team Status: Inactive Member Role Status Dates Dr. Brown Juarez MD Primary Care Provider, Attending Provider Active Team Status: Active Member Role Status Dates Dr. Chris Cochran MD Family Provider Active No Primary Care Physician Primary Care Provider Active Team Status: Active Member Role Status Dates Dr. Andrew Jimenes MD Emergency Provider Active No Primary Care Physician Primary Care Provider Active Dr. Chely Peralta MD Admit Provider, Attending Prov ider Active (unrecognized sect ion and content) No Status Records Found INFORMATION SOURCE (unrecogn ized section and content) DATE CREATED AUTHOR 05/01/2024 [facility] FOR RECORDS PERTAINING TO PATIENTS WHO ARE OR HAVE BEEN ENROLLED IN A CHEMICAL DEPENDENCY/SUBSTANCEABUSE PROGRAM, SOME INFORMATION MAY BE OMITTED. This clinical summary was aggregated from multiple sources. Caution should be exercised in using it in the provision of clinical care. This summary normalizes information from multiple sources, and as a consequence, information in this document may materially change the coding, format and clinical context of patient data. In addition, data may be omitted in some cases. CLINICAL DECISIONS SHOULD BE BASED ON THE PRIMARY CLINICAL RECORDS. [facility]. provides no warranty or guarantee of the accuracy or completeness of information in this document.
--- OUTSIDE RECORDS SUMMARY | 2024-10-22 18:22 | XMS RPT_ITS | CCD ---
Author Organization [facility] Care Team Providers Care Machine Iii Coremaker Name Role Phone [facility] [...] )on 03-24-2024 BUN/CRE 18.8 RATIO Normal 10-20 [facility] Comment on above: Performed By: #### L 500.2500, L500.4100 #### [facility] [address] [place], [address] CA,Total 9.3 mg/dL Normal 8.5-10.1 [facility] Comment on above: Performed By: #### L 500.2500, L500.4100 #### [facility] [address] [place], [address] Chloride [Moles/Vol] 110 mmol/L High 98-107 [facility] Comment on above: Performed By: #### L 500.2500, L500.4100 #### [facility] [address] [place], [address] CO2 [Moles/Vol] 24.0 mmol/L Normal 21.0-32.0 [facility] Comment on above: Performed By: #### L 500.2500, L500.4100 #### [facility] [address] [place], [address] Creatinine [Mass/Vol] 0.96 mg/dL Normal 0.70-1.30 [facility] Comment on above: Result Comment: The validity of the calculated GFR GFRAA in patients over 70 years has not been determined. Clinical correlation is essential. Performed By: #### L 500.2500, L500.4100 #### [facility] [address] [place], [address] EST GFR - AA 100 mL/min Normal >60 [facility] Comment on above: Result Comment: Afri can Gambian GFR Calc Performed By: #### L 500.2500, L500.4100 #### [facility] [address] [place], [address] GAP 6 Normal 5-15 [facility] Comment on above: Performed By: #### L 500.2500, L500.4100 #### [facility] [address] [place], [address] GFR/1.73 sq M.predicted among non-blacks MDRD (S/P/Bld) [Vol rate/Area] 83 mL/min/{1.73_m2} Normal >60 [facility] Comment on above: Result Comment: Non- GFR Calc Performed By: #### L 500.2500, L500.4100 #### [facility] [address] [place], [address] Glucose [Mass/Vol] 116 mg/dL High 74-106 [facility] Comment on above: Result Comment: Fast ing Glucose result from 100 to 125 mg/dL suggests IMPAIRED HOMEOSTASIS per A.D.A. criteria. Performed By: #### L 500.2500, L500.4100 #### [facility] [address] [place], [address] Potassium [Moles/Vol] 3.7 mmol/L Normal 3.5-5.1 [facility] Comment on above: Performed By: #### L 500.2500, L500.4100 #### [facility] [address] [place], [address] Sodium [Moles/Vol] 140 mmol/L Normal 136-145 [facility] Comment on above: Performed By: #### L 500.2500, L500.4100 #### [facility] [address] [place], [address] Urea nitrogen [Mass/Vol] 18 mg/dL Normal 7-18 [facility] Comment on above: Performed By: #### L 500.2500, L500.4100 #### [facility] [address] [place], [address] Lipid Profileon 03-24-2024 Cholesterol [Mass/Vol] 137 mg/dL Normal 200 [facility] Comment on above: Result Comment: <200 mg/dL Desirable 200-240 mg/dL Borderline >240 mg/dL High Risk Performed By: #### L 500.2500, L500.4100 #### [facility] [address] [place], [address] Cholesterol in HDL [Mass/Vol] 39 mg/dL Low [facility] Comment on above: Result Comment: The drugs N-Acetylcysteine and Metamizole may falsely depress this assay. Reference Range HDL <40 mg/dL Low HDL Cholesterol HDL >or= 60 mg/dL High HDL Cholesterol Performed By: #### L 500.2500, L500.4100 #### [facility] [address] [place], [address] Cholesterol in LDL [Mass/Vol] 77 mg/dL Normal 0-130 [facility] Comment on above: Performed By: #### L 500.2500, L500.4100 #### [facility] [address] [place], [address] Cholesterol in VLDL [Mass/Vol] 21 mg/dL Normal 5-40 [facility] Comment on above: Performed By: #### L 500.2500, L500.4100 #### [facility] [address] [place], [address] Triglyceride [Mass/Vol] 104 mg/dL Normal [facility] Comment on above: Result Comment: The drugs N-Acetylcysteine and Metamizole may falsely depress this assay. Serum Triglycerides Reference Interval Normal <150 mg/dL Borderline high 150 - 199 mg/dL High 200 - 499 mg/dL Very High > or = 500 mg/dL Performed By: #### L 500.2500, L500.4100 #### [facility] [address] [place], [address] Basic Metabolic Profile (BMP )on 10-30-2023 BUN/CRE 17.7 RATIO Normal 10-20 [facility] Comment on above: Performed By: #### L 501.9940, L500.4100, L500.2500 #### [facility] [address] [place], [address] CA,Total 9.2 mg/dL Normal 8.5-10.1 [facility] Comment on above: Performed By: #### L 501.9940, L500.4100, L500.2500 #### [facility] [address] [place], [address] Chloride [Moles/Vol] 111 mmol/L High 98-107 [facility] Comment on above: Performed By: #### L 501.9940, L500.4100, L500.2500 #### [facility] [address] [place], [address] CO2 [Moles/Vol] 25.0 mmol/L Normal 21.0-32.0 [facility] Comment on above: Performed By: #### L 501.9940, L500.4100, L500.2500 #### [facility] [address] [place], [address] Creatinine [Mass/Vol] 0.90 mg/dL Normal 0.70-1.30 [facility] Comment on above: Result Comment: The validity of the calculated GFR GFRAA in patients over 70 years has not been determined. Clinical correlation is essential. Performed By: #### L 501.9940, L500.4100, L500.2500 #### [facility] [address] [place], [address] EST GFR - AA 108 mL/min Normal >60 [facility] Comment on above: Result Comment: Afri can Gambian GFR Calc Performed By: #### L 501.9940, L500.4100, L500.2500 #### [facility] [address] [place], [address] GAP 5 Normal 5-15 [facility] Comment on above: Performed By: #### L 501.9940, L500.4100, L500.2500 #### [facility] [address] [place], [address] GFR/1.73 sq M.predicted among non-blacks MDRD (S/P/Bld) [Vol rate/Area] 89 mL/min/{1.73_m2} Normal >60 [facility] Comment on above: Result Comment: Non- GFR Calc Performed By: #### L 501.9940, L500.4100, L500.2500 #### [facility] [address] [place], [address] Glucose [Mass/Vol] 108 mg/dL High 74-106 [facility] Comment on above: Result Comment: Fast ing Glucose result from 100 to 125 mg/dL suggests IMPAIRED HOMEOSTASIS per A.D.A. criteria. Performed By: #### L 501.9940, L500.4100, L500.2500 #### [facility] [address] [place], [address] Potassium [Moles/Vol] 3.8 mmol/L Normal 3.5-5.1 [facility] Comment on above: Performed By: #### L 501.9940, L500.4100, L500.2500 #### [facility] [address] [place], [address] Sodium [Moles/Vol] 141 mmol/L Normal 136-145 [facility] Comment on above: Performed By: #### L 501.9940, L500.4100, L500.2500 #### [facility] [address] [place], [address] Urea nitrogen [Mass/Vol] 16 mg/dL Normal 7-18 [facility] Comment on above: Performed By: #### L 501.9940, L500.4100, L500.2500 #### [facility] [address] [place], [address] Lipid Profileon 10-30-2023 Cholesterol [Mass/Vol] 136 mg/dL Normal 200 [facility] Comment on above: Result Comment: <200 mg/dL Desirable 200-240 mg/dL Borderline >240 mg/dL High Risk Performed By: #### L 501.9940, L500.4100, L500.2500 #### [facility] [address] [place], [address] Cholesterol in HDL [Mass/Vol] 36 mg/dL Low [facility] Comment on above: Result Comment: The drugs N-Acetylcysteine and Metamizole may falsely depress this assay. Reference Range HDL <40 mg/dL Low HDL Cholesterol HDL >or= 60 mg/dL High HDL Cholesterol Performed By: #### L 501.9940, L500.4100, L500.2500 #### [facility] [address] [place], [address] Cholesterol in LDL [Mass/Vol] 66 mg/dL Normal 0-130 [facility] Comment on above: Performed By: #### L 501.9940, L500.4100, L500.2500 #### [facility] [address] [place], [address] Cholesterol in VLDL [Mass/Vol] 34 mg/dL Normal 5-40 [facility] Comment on above: Performed By: #### L 501.9940, L500.4100, L500.2500 #### [facility] [address] [place], [address] Triglyceride [Mass/Vol] 171 mg/dL Normal [facility] Comment on above: Result Comment: The drugs N-Acetylcysteine and Metamizole may falsely depress this assay. Serum Triglycerides Reference Interval Normal <150 mg/dL Borderline high 150 - 199 mg/dL High 200 - 499 mg/dL Very High > or = 500 mg/dL Performed By: #### L 501.9940, L500.4100, L500.2500 #### [facility] [address] [place], [address] PSA,Total- Diagnosticon 07-0 PSA, DIAGNOSTIC 1.97 ng/mL Normal 0.0-4.0 [facility] Comment on above: Result Comment: This test was performed using the TPSA assay method for the [employer] chemistry system. Values obtained with different assay methods cannot be used interchangably. When changing PSA assays in the course of monitoring a patient, additional sequential testing should be carried out to confirm baseline values. Performed By: #### L 501.9940, L500.4100, L500.2500 #### [facility] [address] [place], [address] Absolute lymphocyte countOrd ered By: Andrew Jimenes on 03-06-2023 Lymphocytes Auto (Unsp spec) [#/Vol] 2.36 10*3/uL 0.83-4.51 [facility] Basophil percentageOrdered B y: Andrew Jimenes on 03-06-2023 Ammonia (P) [Moles/Vol] 15.0 umol/L 11-32 [facility] Basophils/100 WBC (Bld) 0.6 % 0-1 [facility] Bilirubin [Mass/Vol] 0.70 mg/dL 0.20-1.00 [facility] Comment on above: For patients on eltr ombopag therapy, use of Dimension [place] TBIL is not recommended. Chloride [Moles/Vol] 108 mmol/L 98-107 [facility] Eosinophils/100 WBC (Bld) 0.1 % 0-5 [facility] Glucose [Mass/Vol] 138 mg/dL 74-106 [facility] Comment on above: Fasting Glucose resu lt greater than or equal to 126 mg/dL suggests DIABETES MELLITUS per A.D.A. criteria. Neutrophils (Bld) [#/Vol] 11.5 10*3/uL 2.0-7.7 [facility] Neutrophils/100 WBC (Bld) 77.8 % 47-70 [facility] Potassium [Moles/Vol] 3.1 mmol/L 3.5-5.1 [facility] Protein [Mass/Vol] 6.9 g/dL 6.4-8.2 [facility] Sodium [Moles/Vol] 141 mmol/L 136-145 [facility] WBC (Bld) [#/Vol] 14.7 10*3/uL 4.4-11.0 [facility] Blood erythrocytes count (nu mber/volume)Ordered By: Andrew Jimenes on 03-06-2023 RBC (Bld) [#/Vol] 4.70 10*6/uL 4.6-6.2 [facility] Blood hemoglobin measurement (mass/volume)Ordered By: Andrew Jimenes on 03-06-2023 Hemoglobin (Bld) [Mass/Vol] 14.4 g/dL 13.0-16.5 [facility] Blood lymphocytes/100 leukoc ytesOrdered By: Andrew Jimenes on 03-06-2023 Lymphocytes/100 WBC (Bld) 16.0 % 19-41 [facility] Blood monocytes/100 leukocyt esOrdered By: Andrew Jimenes on 03-06-2023 Monocytes/100 WBC (Bld) 5.2 % 0-10 [facility] Blood platelet mean volumeOr dered By: Andrew Jimenes on 03-06-2023 Platelet mean volume (Bld) [Entitic vol] 10.4 fL 6.2-12.0 [facility] Determination of erythrocyte mean corpuscular volume (MCV)Ordered By: Andrew Jimenes on 03-06-2023 MCV (RBC) [Entitic vol] 89.6 fL 80-94 [facility] Hematocrit Auto (Bld) [Volum e fraction]Ordered By: Andrew Jimenes on 03-06-2023 Hematocrit (Bld) [Volume fraction] 42.1 % 40-54 [facility] - Chemistry and C hemistry - challengeOrdered By: Andrew Jimenes on 03-06-2023 ALP [Catalytic activity/Vol] 115 U/L 45-117 [facility] ALT [Catalytic activity/Vol] 26 U/L 16-61 [facility] CO2 [Moles/Vol] 25.0 mmol/L 21.0-32.0 [facility] Globulin (S) [Mass/Vol] 2.8 g/dL 2.2-4.2 [facility] Urea nitrogen/Creatinine [Mass ratio] 17.0 mg/mg 10-20 [facility] - Chemistry and C hemistry - challengeOrdered By: Chely Peralta on 03-06-2023 Magnesium [Mass/Vol] 2.0 mg/dL 1.6-2.6 [facility] - Drug toxicology Ordered By: Andrew Jimenes on 03-06-2023 Amphetamines Ql (U) Negative <1000 ng/mL [facility] Benzodiazepines Ql (U) Negative < 200 ng/mL [facility] Cannabinoids Screen Ql (U) Positive < 50 ng/mL [facility] Cocaine Ql (U) Negative < 300 ng/mL [facility] Opiates Ql (U) Negative < 300 ng/mL [facility] - Hematology and Cell countsOrdered By: Andrew Jimenes on 03-06-2023 Erythrocyte distribution width (RBC) [Entitic vol] 42.4 fL 35.1-43.9 [facility] Erythrocyte distribution width (RBC) [Ratio] 13.0 % 11.6-14.6 [facility] Immature granulocytes/100 WBC (Bld) 0.300 % 0.0-0.9 [facility] Comment on above: IG% - Immature Granu locytes (promyelocytes, myelocytes and metamyelocytes) > 1% indicates that a LEFT SHIFT is Present. MCH (RBC) [Entitic mass] 30.6 pg 27.0-32.0 [facility] Nucleated RBC/100 WBC (Bld) [Ratio] 0 % 0-5 [facility] MCHC Auto (RBC) [Mass/Vol]Or dered By: Andrew Jimenes on 03-06-2023 MCHC (RBC) [Mass/Vol] 34.2 g/dL 32-36 [facility] No Panel InformationOrdered By: Andrew Jimenes on 03-06-2023 MDMA (Ecstasy) Screen Negative < 500 ng/mL [facility] Urine Barbiturates Screen Negative < 200 ng/mL [facility] Urine Drug Screen Comment [facility] Comment on above: CONFIRMATORY TESTING FOR ALL [...] Methadone Screen Negative < 300 ng/mL [facility] Estimated Creatinine Clearance Calc 68.82 ml/min [facility] Estimated GFR (MDRD) Amer 103 mL/min >60 [facility] Comment on above: GFR Calc Estimated GFR (MDRD) Non-Af Amer 85 mL/min >60 [facility] Comment on above: Non- GFR Calc Ethyl Alcohol Level < 3.0 mg/dL [facility] Comment on above: The serum:whole bloo d ethanol ratio is approximately 1.14and varies slightly with hematocrit. Medical Alcohol reference interval and critical value innon-tolerant individuals; 50 - 100 Impairment 100 Intoxication 100 - 250 Severe Poisoning 250 - 400 Deep/possible fatal coma Troponin I High Sensitivity 18 pg/mL 3.0-78.0 [facility] Comment on above: Please Note: New Josiane t Units and Gender Specific Reference Ranges. For more information see Policy Stat Procedure [place] High Sensitivity Troponin (TNIH) and attachments. Platelets bldOrdered By: Chan Jimenes on 03-06-2023 Platelets (Bld) [#/Vol] 256 10*3/uL 150-450 [facility] Serum or plasma albumin tristan urement (mass/volume)Ordered By: Andrew Jimenes on 03-06-2023 Albumin [Mass/Vol] 4.1 g/dL 3.2-5.0 [facility] Serum or plasma albumin/glob ulin mass ratioOrdered By: Andrew Jimenes on 03-06-2023 Albumin/Globulin [Mass ratio] 1.5 {ratio} 0.9-2.4 [facility] Serum or plasma calcium tristan urement (mass/volume)Ordered By: Andrew Jimenes on 03-06-2023 Calcium [Mass/Vol] 9.1 mg/dL 8.5-10.1 [facility] Serum or plasma creatinine m easurement (mass/volume)Ordered By: Andrew Jimenes on 03-06-2023 Creatinine [Mass/Vol] 0.94 mg/dL 0.70-1.30 [facility] Comment on above: The validity of the calculated GFR & GFRAA in patients over 70 years has not been determined. Clinical correlation is essential. Serum or plasma urea nitroge n measurement (mass/volume)Ordered By: Andrew Jimenes on 03-06-2023 Urea nitrogen [Mass/Vol] 16 mg/dL 7-18 [facility] Thin prep Papanicolaou smear with manual screeningOrdered By: Andrew Jimenes on 03-06-2023 Thin prep Papanicolaou smear with manual screening 14 U/L 15-37 [facility] Thin prep Papanicolaou smear with manual screening 8 5-15 [facility] Urine phencyclidine (PCP) de tectionOrdered By: Andrew Jimenes on 03-06-2023 Phencyclidine Ql (U) Negative < 25 ng/mL [facility] Basophil percentageOrdered B y: Dr. Juarez on 07-03-2022 Chloride [Moles/Vol] 107 mmol/L 98-107 [facility] Glucose [Mass/Vol] 122 mg/dL 74-106 [facility] Comment on above: Fasting Glucose resu lt from 100 to 125 mg/dL suggests IMPAIRED HOMEOSTASIS per A.D.A. criteria. Potassium [Moles/Vol] 3.4 mmol/L 3.5-5.1 [facility] Sodium [Moles/Vol] 140 mmol/L 136-145 [facility] - Chemistry and C hemistry - challengeOrdered By: Dr. Juarez on 07-03-2022 CO2 [Moles/Vol] 24.0 mmol/L 21.0-32.0 [facility] Urea nitrogen/Creatinine [Mass ratio] 17.5 mg/mg 10-20 [facility] No Panel InformationOrdered By: Dr. Juarez on 07-03-2022 Estimated GFR (MDRD) Amer 100 mL/min >60 [facility] Comment on above: GFR Calc Estimated GFR (MDRD) Non-Af Amer 82 mL/min >60 [facility] Comment on above: Non- GFR Calc Serum or plasma calcium tristan urement (mass/volume)Ordered By: Dr. Juarez on 07-03-2022 Calcium [Mass/Vol] 9.6 mg/dL 8.5-10.1 [facility] Serum or plasma creatinine m easurement (mass/volume)Ordered By: Dr. Juarez on 07-03-2022 Creatinine [Mass/Vol] 0.97 mg/dL 0.70-1.30 [facility] Comment on above: The validity of the calculated GFR & GFRAA in patients over 70 years has not been determined. Clinical correlation is essential. Serum or plasma urea nitroge n measurement (mass/volume)Ordered By: Dr. Juarez on 07-03-2022 Urea nitrogen [Mass/Vol] 17 mg/dL 7-18 [facility] Thin prep Papanicolaou smear with manual screeningOrdered By: Dr. Juarez on 07-03-2022 Thin prep Papanicolaou smear with manual screening 9 5-15 [facility] Whole blood hemoglobin A1c/t otal hemoglobin ratio (mass fraction)Ordered By: Dr. Juarez on 07-03-2022 HbA1c (Bld) [Mass fraction] 5.6 % 3.8-5.6 [facility] Comment on above: Normal < 5.7 % Predi abetic 5.7 - 6.4 % Diabetic >or= 6.5 % Please note range changes. Basophil percentageon 2021 Bilirubin [Mass/Vol] 0.40 mg/dL 0.20-1.00 [facility] Work Phone: Comment on above: For patients on eltr ombopag therapy, use of Dimension [place] TBIL is not recommended. Chloride [Moles/Vol] 108 mmol/L 98-107 [facility] Work Phone: Cholesterol [Mass/Vol] 118 mg/dL <200 [facility] Work Phone: Comment on above: <200 mg/dL Desirable 200-240 mg/dL Borderline >240 mg/dL High Risk Glucose [Mass/Vol] 99 mg/dL 74-106 [facility] Work Phone: Potassium [Moles/Vol] 3.5 mmol/L 3.5-5.1 [facility] Work Phone: Protein [Mass/Vol] 6.5 g/dL 6.4-8.2 [facility] Work Phone: Sodium [Moles/Vol] 143 mmol/L 136-145 [facility] Work Phone: [phone] Triglyceride [Mass/Vol] 163 mg/dL <199 [facility] Work Phone: Comment on above: The drugs N-Acetylcy steine and Metamizole may falsely depress this assay.Serum Triglycerides Reference Interval Normal <150 mg/dL Borderline high 150 - 199 mg/dL High 200 - 499 mg/dL Very High > or = 500 mg/dL Laboratory - Chemistry and C hemistry - challengeon 01-16-2022 ALP [Catalytic activity/Vol] 91 U/L 45-117 [facility] Work Phone: ALT [Catalytic activity/Vol] 17 U/L 16-61 [facility] Work Phone: [phone] CO2 [Moles/Vol] 28.0 mmol/L 21.0-32.0 [facility] Work Phone: [phone] Globulin (S) [Mass/Vol] 3.0 g/dL 2.2-4.2 [facility] Work Phone: Urea nitrogen/Creatinine [Mass ratio] 17.6 mg/mg 10-20 [facility] Work Phone: No Panel Informationon 01-16 Estimated GFR (MDRD) Amer 116 mL/min >60 [facility] Work Phone: [phone] Comment on above: GFR Calc Estimated GFR (MDRD) Non-Af Amer 96 mL/min >60 [facility] Work Phone: Comment on above: Non- GFR Calc Serum or plasma albumin tristan urement (mass/volume)on 01-16-2022 Albumin [Mass/Vol] 3.5 g/dL 3.2-5.0 [facility] Work Phone: Serum or plasma albumin/glob ulin mass ratioon 01-16-2022 Albumin/Globulin [Mass ratio] 1.2 {ratio} 0.9-2.4 [facility] Work Phone: Serum or plasma calcium tristan urement (mass/volume)on 01-16-2022 Calcium [Mass/Vol] 9.1 mg/dL 8.5-10.1 [facility] Work Phone: Serum or plasma cholesterol in HDL measurement (mass/volume)on 01-16-2022 Cholesterol in HDL [Mass/Vol] 35 mg/dL >40 [facility] Work Phone: Comment on above: The drugs N-Acetylcy steine and Metamizole may falsely depress this assay. Reference Range HDL <40 mg/dL Low HDL Cholesterol HDL >or= 60 mg/dL High HDL Cholesterol Serum or plasma cholesterol in VLDL measurement (mass/volume)on 01-16-2022 Cholesterol in VLDL [Mass/Vol] 33 mg/dL 5-40 [facility] Work Phone: Serum or plasma creatinine m easurement (mass/volume)on 01-16-2022 Creatinine [Mass/Vol] 0.85 mg/dL 0.70-1.30 [facility] Work Phone: Comment on above: The validity of the calculated GFR & GFRAA in patients over 70 years has not been determined. Clinical correlation is essential. Serum or plasma low density lipoprotein (LDL) cholesterol measurement (mass/volume)on 01-16-2022 Cholesterol in LDL [Mass/Vol] 50 mg/dL 0-130 [facility] Work Phone: Serum or plasma urea nitroge n measurement (mass/volume)on 01-16-2022 Urea nitrogen [Mass/Vol] 15 mg/dL 7-18 [facility] Work Phone: [phone] Thin prep Papanicolaou smear with manual screeningon 01-16-2022 Thin prep Papanicolaou smear with manual screening 12 U/L 15-37 [facility] Work Phone: [phone] Thin prep Papanicolaou smear with manual screening 7 5-15 [facility] Work Phone: [phone] Vital Signs Date Time Vital Sign Value Performing Clinician Madeleine blanc 03-06-2023 17:07-0500 Diastolic blood pressure 69 mm[Hg] [facility] 03-06-2023 17:07-0500 Heart rate 48 /min [facility] 03-06-2023 17:07-0500 Respiratory rate 16 /min [facility] 03-06-2023 17:07-0500 Systolic blood pressure 150 mm[Hg] [facility] 03-06-2023 12:24-0500 Body height 167.64 cm [facility] 03-06-2023 12:24-0500 Body mass index (BMI) [Ratio] 28 kg/m2 [facility] 03-06-2023 12:24-0500 Body temperature 97.9 [degF] [facility] 03-06-2023 12:24-0500 Body weight 78.92 kg [facility] 03-06-2023 12:24-0500 SaO2% (BldA) [Mass fraction] 100 % [facility] Encounters Encounter Date Encounter Type Care Provider Facility Start: 03-24-2024 End: 03-24-2024 ambulatory [facility] Facility:[facility] Start: 10-30-2023 End: 10-30-2023 [facility] Facility:[facility] Start: 03-06-2023 Evaluation and manag ement of inpatient [facility] Work Phone: Start: 03-06-2023 observation encounter [facility] Work Phone: Start: 07-03-2022 End: 07-03-2022 ambulatory [facility] Work Phone: Start: 07-03-2022 End: 07-03-2022 Patient encounter procedure [facility] Start: 01-16-2022 End: 01-16-2022 ambulatory [facility] Work Phone: Start: 01-16-2022 End: 01-16-2022 Patient encounter procedure [facility] Procedures Date Procedure Procedure Detail Performing Clinician Start: 03-06-2023 Plain chest X-ray Start: 03-06-2023 CT angiography of he ad and neck Plan of Treatment Date Care Activity Detail Author Start: 03-06-2023 Verification routine [facility] Start: 03-06-2023 Admission procedure [facility] Start: 03-06-2023 Hospital admission, emergency, from emergency room, medical nature [facility] Patient referral [facility] Work Phone: Immunizations Immunization Date Immunization Notes Care Provider Fa cility 07-30-2020 Covid (Pfizer) [facility] 07-09-2020 Covid (Pfizer) [facility] Payers Date Payer Category Payer Self-pay [id number] 2023 Unknown [id number] Unknown [employer] [place] [id number] Unknown [id number] Social History Date Type Detail Facility Start: 07-18-2016 End: 03-06-2023 Tobacco smoking status NHIS Unknown if ever smoked [facility] End: 04-23-2015 History of tobacco use [facility] Work Phone: Start: 07-18-2016 Rare [facility] Start: 07-18-2016 None;Marijuana [facility] Start: 07-18-2016 Spouse/ Signif icant Other [facility] Start: 07-18-2016 Non-smoker [facility] Start: 1955 Sex Assigned At Male [facility] Mental Status Date Assessment Result Facility 03-06-2023 Cognitive function Disoriented [facility] Work Phone: Discharge summary 03-06-2023 Note Date & Type Note Facility 03-06-2023 Discharge summary Note Date/Time March 06, 2023 12:47pm [facility] Medical Records Department [address] [place] [address] Emergency Department Summary 03/06/23 MR#: [id number] Acct: [id number] Name: CORTNEY BLISS Rep #:[id number] : [...] the year. He did know the president [facility]. There is no focal weakness or numbness. [...] RDW Std Deviation 42.4 RDW Coeff of Abrhaan 13.0 Plt Count 256 MPV 10.4 Immature Gran % (Auto) 0.300 Neut % (Auto) 77.8 H Lymph % (Auto) 16.0 L Loup % (Auto) 5.2 Eos % (Auto) 0.1 [...] ST elevation or depression. Mild nonspecific changes. AL interval, QRS duration and QTc are normal. [...] Staff] - Disposition Disposition: Acute Care Hospital [facility] What to do if you have Problems For any increased pain, shortness of breath, bleeding, nausea or vomiting, chestpain, or any unexpected problems, contact your Primary Care Provider. Call [facility] ([phone]) or report to the closest Emergency Room. Call 911 if necessary. 03/06/23 1451 <Electronically signed by Andrew Jimenes MD> Cosigner Signature (if applicable): CC: No Primary Care Physician ~ Signed [facility] Work Phone: History and physical note 03-06-2023 Note Date & Type Note Facility 03-06-2023 History and physi chiquis note Note Date/Time March 06, 2023 2:47pm [facility] Medical Records Department [address] [place] [address] H&P Exam - Hospitalist 03/06/23 1446 MR#: [id number] Acct: [id number] Name: CORTNEY BLISS Rep #:[id number] : 1955 67 From: Chely Peralta MD PCP: Care Physician,No Primary Status :ADM JASEN Location: [place] [address] HPI - General General Date of Admission: 03/06/23 Date of Service: 03/06/23 Chief Complaint: Confusion. HPI Narrative The patient is a 67 y/o M w/ PMHx: Anxiety and Depression, HTN, HLD, Former cigarette tobacco use-->cigar daily use who presents to the [facility] ED on 03/06/23 with history of awaking [...] (Auto) 77.8 H, Lymph % (Auto) 16.0 L,Loup % (Auto) 5.2, Eos % (Auto) 0.1, [...] use-->cigar daily use who presents to the [facility] ED on 03/06/23 with history of awaking [...] prophylaxis: Lovenox. Charges/Coding Visit Charges Inpatient E&M: 90409 Init Hosp L3 03/06/23 1602 <Electronically signed by Chely Peralta MD> Cosigner Signature (if applicable): CC: Dr. Chely Peralta MD; No Primary Care Physician~ Signed [facility] Work Phone: Evaluation note Note Date & Type Note Facility Evaluation note No assessment information availa ble [facility] Work Phone: Evaluation note Note Date & Type Note Facility Evaluation note Diagnosis Onset Date Acute hypokalemia acute Amnesia, global, transient a cute Elevated blood sugar acute TIA (transient ischemic attack) acute [facility] Work Phone: Family History No Family History [...] No July 18, 2016 10:25am Power of Railroad Inspector No July 18 10:25am Advance Directive Response Recorded Date/ Time Living Will No March 06 1:02pm Power of Railroad Inspector No March 06, 2023 1:02pm Chief Complaint [...] Care Physician Primary Care Provider Active Dr. Cheyl Peralta MD Admit Provider, Attending Prov ider Active (unrecognized sect ion and content) No Status Records Found INFORMATION SOURCE (unrecogn ized section and content) DATE CREATED AUTHOR 05/01/2024 [facility] FOR RECORDS PERTAINING TO PATIENTS WHO ARE [...] BE BASED ON THE PRIMARY CLINICAL RECORDS. [facility] [email or web address] [facility]. provides no warranty or guarantee of the accuracy or completeness of information in this document.
== END | disposition home or self-care (01) ==
LOC: MTLAB 08:31
PROVIDERS: PCP Family Medicine; Referring Provider Family Medicine; Visit Provider Family Medicine
DX: I10 Essential (primary) hypertension (principal)
CPT/HCPCS: 36415; 80053

== ENCOUNTER → 2025-02-02 | Outpatient (CLI) | payer MEDICARE, SELFPAY ==
[2025-02-02 12:08] LABS: AST(SGOT) 17 U/L (<=37); Alanine Aminotransfer ALT/SGPT 9 U/L (<=46); Albumin, Serum 4.2 g/dL (3.4-4.8); Alkaline Phosphatase 104 U/L (40-129); Anion Gap 10 (5-15); BUN 13 mg/dL (4-19); BUN/Creat Ratio 14.7 RATIO (10-20); Calcium,Total 9.4 mg/dL (7.6-11.0); Carbon Dioxide 24.8 mmol/L (21.0-32.0); Chloride 106 mmol/L (98-108); Cholesterol 138 mg/dL (<=200); Globulin 2.4 g/dL (2.2-4.2); Glucose 106 mg/dL (70-99); Low Density Lipoprotein Calc. 62 mg/dL; Potassium 3.8 mmol/L (3.3-5.1); Triglycerides 217 mg/dL; Very Low Density Lipoprotein 43 mg/dL (5-40); cholesterol:hdl ratio screen 4.26
== END | disposition home or self-care (01) ==
LOC: MFPLAB 08:46
PROVIDERS: PCP Family Medicine; Visit Provider Family Medicine
DX: E78.5 Hyperlipidemia, unspecified (principal)
CPT/HCPCS: 36415; 80053; 80061